=== PATIENT | male | born 1935 | race Caucasian/White ===

== ENCOUNTER 2016-10-31 03:19 | Inpatient (IN) | payer MEDICARE, MEDICAID ==
[~2016-10-31] VITALS: Ht 182.9 cm; Wt 86.2 kg
[2016-10-31] VITALS (38 sets, daily range): BP systolic 68–138; BP diastolic 28–80
[~2016-10-31 03:19] MED LIST: ACTOS45 MG PO; ALBUTEROL2.5 MG/3 M HHN; APRESOLINE50 MG ORAL; ARGINAID POWDE1 EACH PO; ASCORBIC ACID500 MG ORAL; ASPIRIN81 M1 PO; BENAZEPRIL HCL5 MG PO; CARAFATE1 G1 ORAL; CARDIZEM CD300 MG ORAL; CEFEPIME-D1 GM/50 ML IVPB; CEPHALEXIN500 MG ORAL; COLACE100 MG PO; DAILY VITAMIN1 EACH PO; DOCUSATE CALCI240 MG PO; FINASTERIDE5 MG PO; FLAGYL500 MG ORAL; FLOMAX0.4 MG ORAL; FUROSEMIDE40 MG ORAL; KEFLEX500 MG ORAL; LASIX20 M1 ORAL; LEVEMIR FL100 UNIT/1 SUBQ; LEVEMIR100 UNIT/1 SUBQ; LEXAPRO10 MG ORAL; LOMOTIL TABLET1 EACH ORAL; LOPRESSOR25 M1 ORAL; METFORMIN HCL1000 MG PO; METOPROLOL SUC100 MG PO; METOPROLOL TART25 MG ORAL; MULTI-DELYN237 ML ORAL; NORCO 5-325 TA1 EACH PO; NORVASC5 MG ORAL; NOVOLOG100 UNIT/3 SUBQ; NOVOLOG100 UNITS1 SUBQ; PRAVACHOL20 MG GT; PRAVACHOL80 MG PO; PROTONIX20 MG PO; PROTONIX40 M2 ORAL; RAMIPRIL5 MG ORAL; RESTORIL15 MG PO; TAMSULOSIN HCL0.4 MG PO; TOBRADEX EYE DRO5 ML OP; TYLENOL650 MG/20. ORAL; ULTRAM50 MG ORAL; VICODIN 5-5001 EACH PO; VITAMIN C500 MG PO; ZINC SULFATE220 M1 ORAL; [UNRECOGNIZED DRUG - OTHER] PO
[2016-10-31] MEDS ORDERED: FERROUS SULFAT325 MG ORAL (03:24)
[2016-10-31] MEDS ORDERED: GLYCOLAX225 GM PO (03:29)
[2016-10-31] MEDS ORDERED: CYANOCOBAL1000 MCG/M IM (03:29)
[2016-10-31] MEDS ORDERED: AMIODARONE HCL400 M1 ORAL ×2 (03:30→03:32)
[2016-10-31] MEDS ORDERED: LOPRESSOR5 MG/5 ML ORAL (03:33)
[2016-10-31] MEDS ORDERED: PRANDIN2 MG ORAL (03:34)
[2016-10-31] MEDS ORDERED: PRAVASTATIN SOD20 M1 ORAL (03:35)
[2016-10-31] MEDS ORDERED: TAMSULOSIN HCL0.4 MG ORAL (03:35)
[2016-10-31] MEDS ORDERED: PROTONIX40 MG ORAL (03:36)
[2016-10-31] MEDS ORDERED: TRAMADOL HCL50 MG ORAL (03:36)
[2016-10-31] MEDS ORDERED: PROSCAR5 MG ORAL (03:37)
[2016-10-31] MEDS ORDERED: GLUCAGEN1 M1 IJ (03:38)
[2016-10-31] MEDS ORDERED: HYDRALAZINE HCL25 M1 ORAL (03:38)
[2016-10-31] MEDS ORDERED: NORVASC10 MG ORAL (03:40)
[2016-10-31] MEDS ORDERED: NORVASC5 MG ORAL (03:40)
[2016-10-31] MEDS ORDERED: DOCUSATE SODIU250 MG ORAL (03:41)
--- NOTE | 2016-10-31 03:41 | Emergency Room Report ---
History of Present Illness General Chief Complaint: Fever Source: Medical Record, EMS, PMD Present Illness HPI [id number] BIBEMS from SNF for "fever". No additional info from EMS. Patient with dementia, unreliable contributor to HPI. All PMHx from review of SNF paperwork and review of EMR. No family members present for collaborative history. Per paperwork, patient is DNR. Allergies: Coded Allergies: No Known Allergies (Verified , 03/27/08) UNABLE TO ASSESS (Unverified , 02/28/12) PT W/ AMS, FROM [facility] Patient History Past Medical History: see triage record, old chart reviewed, COPD Past Surgical History: unable to obtain Pertinent Family History: unable to obtain Social History: Denies: alcohol use, drug use, smoking Immunizations: UTD Reviewed Nursing Documentation: PMH: Agreed, PSxH: Agreed Nursing Documentation-PMH Hx Hypertension: Yes Hx COPD: Yes Hx Diabetes: Yes Hx Cancer: No Hx Gastrointestinal Problems: Yes Hx Neurological Problems: Yes Review of Systems All Other Systems: limited - demenita Physical Exam Vital Signs Date Time Temp Pulse Resp B/P Pulse Ox O2 Delivery O2 Flow Rate FiO2 10/31/16 03:10 102.2 90 27 113/78 88 Nasal Cannula 4.0 Sp02 EP Interpretation: reviewed, abnormal General Appearance: normal inspection, well appearing, no apparent distress, alert, GCS 15, non-toxic Head: normocephalic, atraumatic Eyes: bilateral eye EOMI, bilateral eye PERRL ENT: normal ENT inspection, hearing grossly normal, normal voice Neck: normal inspection, full range of motion, supple, no bony tend Respiratory: normal inspection, no respiratory distress, no retraction, crackles, speaking full sentences, wheezing Cardiovascular #1: regular rate, rhythm, no edema Gastrointestinal: normal inspection, normal bowel sounds, non tender, soft, no guarding, no hernia Genitourinary: other - Urine is thick, pus filled in existign ingram Musculoskeletal: normal inspection, back normal, normal range of motion, González' s Sign negative Neurologic: normal inspection, alert, responsive, sat act instructor III-XII nml as tested, speech normal Psychiatric: normal inspection, judgement/insight normal, mood/affect normal Skin: normal inspection, normal color, no rash Medical Decision Making Medicare Attestation I Vidal Rose MD hereby attest that the medical record entry for date of service, 04/18/16 accurately reflects signatures/notations that I made in my capacity as MD when I treated/diagnosed the above listed Medicare beneficiary. I attest that this information is true, accurate and complete to the best of my knowledge. I understand that any falsification, omission, or concealment of material fact may subject me to administrative, civil, or criminal liability. This patient warrants hospital admission for extreme of age and has a condition that cannot be treated as outpatient. Diagnostic Impression: Primary Impression: Fever Qualified Codes: R50.9 - Fever, unspecified Additional Impressions: UTI (urinary tract infection) Qualified Codes: N30.01 - Acute cystitis with hematuria COPD (chronic obstructive pulmonary disease) Qualified Codes: J44.9 - Chronic obstructive pulmonary disease, unspecified Hyperkalemia Hypernatremia MARCO (acute kidney injury) ER Course Fever - Normotensive. Not tachycardia - Urine likely source - thick, pus-filled, foul-smelling. Ingram changed in ED. - Lung exam with crackles, wheezing, ?PNA - CXR: No lobar PNA. Possible left sided infiltrate - Urine, Blood Cx pending - 1L NS given - did not want to give full 30cc/kg sepsis fluid bolus given extreme of age, unknown cardiac EF function - Empiric Abx given Wheezing - COPD history - 1 neb given in ED - Patient continued to desaturate, was started on Bipap Labs: Mild HyperNa, HyperK. Serum Cr acutely worse than previous baseline Marco on CKD - Dehydration? Endorsed to Dr Lema for YOLETTE admisstion at 427am - 200cc/hr IVF given in ED Endorsed to Dr Lema for YOLETTE admission at EKG Diagnostic Results Rate: normal Rhythm: NSR ST Segments: no acute changes ASA given to the pt in ED: No Rhythm Strip Diag. Results EP Interpretation: yes Rate: 86 Rhythm: NSR, no PVC's, no ectopy Chest X-Ray Diagnostic Results Chest X-Ray Ordered: Yes # of Views/Limited/Complete: 1 View Interpretation: no consolidation, no effusion, no pneumothorax, no acute cardiopulmonary disease Indication: Other - fever Impression: No acute disease Date Electronically Signed: Oct 31, 2016 Time Electronically Signed: 03:37 Interpreting ER Physician: Quang Last Vital Signs Date Time Temp Pulse Resp B/P Pulse Ox O2 Delivery O2 Flow Rate FiO2 10/31/16 03:10 102.2 90 27 113/78 88 Nasal Cannula 4.0 Status: improved Disposition: ADMITTED INPATIENT VIDAL ROSE M.D. Oct 31, 2016 03:41
[2016-10-31] MEDS ORDERED: Albuterol ud Inhalation HHN ONE (03:45)
[2016-10-31] MEDS ORDERED: Vancomycin 1.5gm/D5W 300ml 325 ML IVPB ONE (03:45)
[2016-10-31] MEDS ORDERED: DUONEB 0.5-3(2.53 ML HHN (03:52)
[2016-10-31] MEDS ORDERED: EPOGEN20000 UNI1 SUBQ (03:53)
[2016-10-31] MEDS ORDERED: VITAMIN C500 M1 ORAL (03:54)
[2016-10-31] MEDS ORDERED: LANTUS SOL100 UNIT/1 SUBQ (03:55)
[2016-10-31] MEDS ORDERED: Zosyn 4.5gm inj ONE (04:01)
[2016-10-31 04:06] LABS: BASOPHILS % (AUTO) 1.6 % (0.0-2.0); LYMPHOCYTES % (AUTO) 6.3 % (20.0-45.0); MEAN CORPUSCULAR HEMOGLOBIN 28.9 PG (27.0-31.0); MEAN CORPUSCULAR HGB CONC 31.9 G/DL (32.0-36.0); MEAN CORPUSCULAR VOLUME 91 FL (80-99); MEAN PLATELET VOLUME 6.7 FL (6.5-10.1); MONOCYTES % (AUTO) 8.8 % (1.0-10.0); NEUTROPHILS % (AUTO) 83.3 % (45.0-75.0); PLATELET COUNT 157 K/UL (150-450); RED BLOOD COUNT 4.15 M/UL (4.70-6.10); RED CELL DISTRIBUTION WIDTH 15.2 % (11.6-14.8); WHITE BLOOD COUNT 16.7 K/UL (4.8-10.8)
[2016-10-31 04:10] LABS: APPEARANCE,URINE CLOUDY; KETONES,URINE NEGATIVE (NEGATIVE); LEUKOCYTE ESTERASE ,URINE 3+ (NEGATIVE); NITRITE,URINE NEGATIVE (NEGATIVE); PH,URINE 8 (4.5-8.0); PROTEIN,URINE 3+ (NEGATIVE); UROBILINOGEN,URINE NORMAL MG/DL (0.0-1.0)
[2016-10-31 04:18] LABS: ALANINE AMINOTRANSFERASE 9 U/L (3-41); ALBUMIN/GLOBULIN RATIO 0.8 (1.0-2.7); ANION GAP 13 (5-15); ASPARTATE AMINO TRANSFERASE 14 U/L (5-40); CALCIUM 9.4 mg/dL (8.6-10.2); CARBON DIOXIDE 30 mEQ/L (20-30); CHLORIDE 103 mEQ/L (98-107); CREATININE 2.6 mg/dL (0.7-1.2); HEMOLYSIS 4; SODIUM 146 mEQ/L (135-145); TOTAL PROTEIN 8.4 g/dL (6.6-8.7)
[2016-10-31 04:20] LABS: TROPONIN I < 0.30 ng/mL (<=0.30)
[2016-10-31 04:28] LABS: CKMB < 1.5 ng/mL (< 6.7)
[2016-10-31 04:34] LABS: AMORPHOUS SEDIMENT,UR MANY /LPF; BACTERIA,URINE MANY /HPF; RBC,URINE 15-20 /HPF (0 - 0); SQUAMOUS EPITHELIAL CELL,UR OCCASIONAL /LPF (NONE/OCC); TRIPLE PHOSPHATE CRYSTAL,UR MODERATE /LPF
[2016-10-31] MEDS ORDERED: Acetaminophen 650 MG SUPP RECTAL ONE (04:43)
[2016-10-31] MEDS ORDERED: Piperacillin/Tazobactam 4.5 GM in NS 110 ML IV SCH (06:00)
[2016-10-31] MEDS ORDERED: Meropenem 1 GM in NS 110 ML IVPB ONE (06:15)
[2016-10-31] MEDS ORDERED: EPINEPHrine 1mg/10ml Syringe IV ONE ×2 (06:29→07:15)
[2016-10-31] MEDS ORDERED: Lidocaine 1% Plain 30 ml INJ ONE (06:45)
[2016-10-31] MEDS ORDERED: D5W 275 ML ONE (07:10)
[2016-10-31] MEDS ORDERED: Levophed 4mg/4mL Inj IV ONE (07:10)
[2016-10-31] MEDS ORDERED: Tubing IV Cassette IV ONE ×2 (07:10→07:51)
[2016-10-31] MEDS ORDERED: NS 110 ML ONE (07:51)
[2016-10-31] MEDS ORDERED: Meropenem 1gm vial ONE (07:51)
[2016-10-31] MEDS: Meropenem 1 GM in NS 110 ML IVPB SCH ×2 (08:30→20:45)
--- NOTE | 2016-10-31 08:37 | Diagnostic Imaging Report ---
Indications: Shortness of breath Technique: Portable AP chest Findings: Comparison: 09/07/2014 Inspiratory effort has improved. There is suggestion of new focal hazy opacities in the left upper lobe and perihilar regions. Linear densities persist in the left lung base. Small calcified nodules persist in or over the right lung apex. Right lung remains clear. Mild blunting of left costophrenic angle suggested; right sharp. Cardiac silhouette remains upper limits of normal in size. Mild pulmonary vascular redistribution persists. Aortic arch calcification again noted. Chronic appearing contour deformity proximal right humerus again noted. IMPRESSION: Suggestion of new alveolar opacities left upper lung, nonspecific, may represent early pneumonia Suggestion of small left pleural effusion Borderline cardiomegaly with suggestion of pulmonary venous hypertension, without overt congestive heart failure, unchanged Other stable chronic changes as described
--- NOTE | 2016-10-31 09:02 | Emergency Room Report ---
History of Present Illness General Chief Complaint: Fever Source: Medical Record, EMS, PMD Present Illness Allergies: Coded Allergies: No Known Allergies (Verified , 03/27/08) UNABLE TO ASSESS (Unverified , 02/28/12) PT W/ AMS, FROM [facility] Nursing Documentation-PMH Hx Hypertension: Yes Hx COPD: Yes Hx Diabetes: Yes Hx Cancer: No Hx Gastrointestinal Problems: Yes Hx Neurological Problems: Yes Physical Exam Vital Signs Date Time Temp Pulse Resp B/P Pulse Ox O2 Delivery O2 Flow Rate FiO2 10/31/16 03:10 102.2 90 27 113/78 88 Nasal Cannula 4.0 10/31/16 03:44 28 Procedures Central Line Central Line : Consent: Emergent Central Line Lumen: triple Maximal Sterile Barrier Tech: yes cap, yes mask, yes sterile gown, yes sterile gloves, yes large sterile sheet, yes hand hygiene, yes chlorhexidine prep Central Line Postion: femoral (L) Anesthesia: Lidocaine Complications: none Central Line Post Position: sutured, good blood return Attempts: One Patient Tolerated: Well Complications: None Medical Decision Making Diagnostic Impression: Primary Impression: Fever Qualified Codes: R50.9 - Fever, unspecified Additional Impressions: COPD (chronic obstructive pulmonary disease) Qualified Codes: J44.9 - Chronic obstructive pulmonary disease, unspecified Hypernatremia UTI (urinary tract infection) Qualified Codes: N30.01 - Acute cystitis with hematuria MARCO (acute kidney injury) Hyperkalemia ER Course While on BiPAP patient became hypotensive. Initially patient was DO NOT RESUSCITATE but admitting physician agreed to pressor support Initial attempt was made by admitting physician for central line but unsuccessful. I placed a left central femoral line without complication. Pressor started Last Vital Signs Date Time Temp Pulse Resp B/P Pulse Ox O2 Delivery O2 Flow Rate FiO2 10/31/16 08:50 61 22 96/43 Bi-pap 100 10/31/16 08:30 97.8 100 4.0 Status: improved Disposition: ADMITTED INPATIENT Condition: Critical Referrals: ROLAND MURILLO (PCP) KEITH OWUSU M.D. Oct 31, 2016 09:02
[2016-10-31 10:29] LABS: ABG ALLEN TEST POSITIVE; ABG BASE EXCESS 0.4; ABG PCO2 49.8 mmHg (35.0-45.0)
[2016-10-31] MEDS ORDERED: DuoNeb 0.5-3(2.5)mg/3ml neb HHN SCH (11:00)
[2016-10-31] MEDS: Insulin NovoLOG Flexpen S/S (Ins resistant) SUBQ SCH ×3 (11:30→20:49)
--- NOTE | 2016-10-31 12:15 | History and Physical Report ---
DATE OF ADMISSION: 10/31/2016 This is an History and Physical and ICU note CHIEF COMPLAINT AND REASON FOR HOSPITALIZATION: The patient is a 80-year-old male, admitted with septic shock, respiratory failure, and multiorgan failure. HISTORY OF PRESENT ILLNESS: The patient is well known to me has a history of COPD, hypertension, insulin-dependent diabetes, chronic kidney disease stage IV or V bed ridden status, cognitive impairment, and sacral decubitus who presents with a fever of 102.0 degrees in the long term and hypotension despite several liters of fluid given in the emergency room. His indwelling Stewart catheter for protection of the skin in view of his sacral decubitus. He has B12 deficiency prior CO2 retention and hypoxemia prior Pseudomonas pneumonia. PAST SURGICAL HISTORY: Cervical spine surgery for spinal stenosis, prostatectomy, eye surgery for cataracts. MEDICATIONS: Medications at the [facility] include ferrous sulfate, calcium, B12, MiraLAX, amiodarone, Cardizem, Lasix, Lopressor, Prandin, pravastatin, Flomax, tramadol, Tylenol, multivitamins and minerals, Robitussin p.r.n., Protonix, Proscar, NovoLog sliding scale, hydralazine, Norvasc, DSS, Lantus 46 units, and supplemental feedings, Epogen, zinc, and vitamins C. Detailed doses on the transfer record. ALLERGIES: None known. HABITS: He is a former smoker most of his adult life quit within the last 5 years. Alcohol, occasional in the past. Moderate many years ago. SYSTEMS REVIEW: The patient's unable as above, major problems as above. PHYSICAL EXAMINATION: GENERAL: The patient is seen in the ICU. He has a non-rebreather mask and recently was stopped on BiPAP. He is alert, responsive and recognizes physician. VITAL SIGNS: Temperature 97.8 degrees, pulse 60, blood pressure 101/57, and 96/43 on Levophed FiO2 100%, pulse ox 100. HEENT: Head eyes, ears, nose, and throat, sclerae are nonicteric. He has exotropia 1 eye. Oral mucosa slightly dry. NECK: No adenopathy. LUNGS: Distant breath sounds. I do not hear any rales or rhonchi. HEART: Rhythm is regular and tachycardic. I hear no murmur. ABDOMEN: Soft. Liver and spleen not palpable. There is mild distention and mild increased gas and tympanitic. GENITOURINARY: Stewart catheter is in place. Penis and testes normal. SKIN: There is a sacral decubitus likely stage III. Photos in the chart. EXTREMITIES: No edema, cyanosis or clubbing. No contractures in the knees and the arms. NEUROLOGIC: He is alert and responsive. Ocular motions are intact, but he does have a exotropia in one eye. There is no facial asymmetry. Moves all extremities. LABORATORY AND DIAGNOSTIC DATA: Pertinent labs, white count 16.7 and hemoglobin is 12. Sodium 146, potassium 5, chloride 103, CO2 of 30, BUN 65, creatinine 2.6, and glucose 132. Troponin less than 0.30. CK 86. Liver enzymes are normal. Albumin 3.9. Lactic acid 1. Urinalysis shows 5-10 white cells per high-powered field, 15-20 red cells per high-power field. Chest x-ray was done in the emergency room showing a suggestion of new alveolar opacities in the left upper lung may represent early pneumonia suggestive of small left pleural effusion, borderline cardiomegaly and suggestion of pulmonary venous hypertension. IMPRESSION: 1. Septic shock most likely due to urinary tract infection with indwelling Stewart catheter. Possible developing pneumonia. Possible other sources including decubitus intra-abdominal. 2. Chronic kidney disease stage 4. 3. Insulin-dependent diabetes. 4. Hypertensive heart disease. 5. Likely underlying ischemic heart disease. 6. History of gastritis and peptic ulcer disease. 7. History of urinary retention. 8. Decubitus. 9. Contractures secondary to osteoarthritis and prior cervical spinal stenosis. PLAN: The patient will be hydrated. We will try to wean him off pressors given broad-spectrum antibiotics and watch him closely in the ICU. Try to wean him off of the pressors. Detailed ICU orders are given. ICU time 40 minutes. Jose Lema M.D. DR: Jahaira JOB#: [id number] CC:
[2016-10-31] MEDS ORDERED: Ipratropium 0.02% Inh Soln 2.5ml UD HHN SCH (13:00)
[2016-10-31] MEDS ORDERED: Vancomycin 1.5 GM/D5W 325 ML IVPB SCH ×2 (13:00)
[2016-10-31] MEDS ORDERED: Albuterol ud Inhalation HHN SCH (13:00)
[2016-10-31] MEDS ORDERED: Vancomycin 750 MG in D5W 275 ML IVPB SCH (13:00)
[2016-10-31] MEDS: DuoNeb 0.5-3(2.5)mg/3ml neb HHN SCH ×2 (13:48→19:03)
[2016-10-31] MEDS: Famotidine 20 MG/ 2ML VIAL IVP SCH (14:30)
--- NOTE | 2016-10-31 16:45 | Consultation ---
DATE OF CONSULTATION: 10/31/2016 PULMONARY CONSULTATION/ICU CONSULTATION HISTORY OF PRESENT ILLNESS: This is a 80-year-old male who is brought in from a fdc with fever. No other history was available. The patient was here and worked up in the emergency room, initially was placed on BiPAP, is now admitted to ICU. He is presently on a face mask with oxygen saturation of 97%. The patient is also on low-dose pressors. PAST HISTORY: Notable for dementia, COPD, hypertension, diabetes mellitus, history not obtainable, previous history is not known. PHYSICAL EXAMINATION: GENERAL: Reveals an elderly male. VITAL SIGNS: Blood pressure at this time is 90/60 on norepinephrine, heart rate is 68, respirations are 20, O2 saturation 97% on face mask, and T-max 102.2 degrees. HEENT: Unremarkable. RESPIRATORY: Clear. ABDOMEN: Soft. EXTREMITIES: There is no edema. LABORATORY AND DIAGNOSTIC DATA: Urinalysis showed multiple WBCs. X-ray of chest shows patchy left upper lung infiltrate. IMPRESSION: 1. Septic shock. 2. Urinary tract infection. 3. History of chronic obstructive pulmonary disease. 4. Probable pneumonia, healthcare associated. 5. Lung chronic obstructive pulmonary disease. 6. Dementia. DISCUSSION: The patient is admitted to the hospital. Despite lactic acid being 1, I believe he had septic shock with multi-organ dysfunction, renal failure, respiratory failure, and sepsis. We will initiate broad-spectrum antibiotics. Titrate oxygen. Check ABG. 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 Order oxygen, pulmonology and . Rao Sylvester M.D. DR: AMARI JOB#: [id number] CC:
[2016-10-31] MEDS: Heparin 5000 units/ml inj SUBQ SCH (20:47)
[2016-10-31] MEDS ORDERED: Levemir Flexpen SUBQ SCH (21:00)
[2016-11-01] VITALS (19 sets, daily range): BP systolic 88–140; BP diastolic 34–59
[2016-11-01] MEDS: DuoNeb 0.5-3(2.5)mg/3ml neb HHN SCH ×6 (01:12→23:57)
[2016-11-01 04:53] LABS: BASOPHILS % (AUTO) 0.5 % (0.0-2.0); EOSINOPHILS % (AUTO) 0.1 % (0.0-3.0); LYMPHOCYTES % (AUTO) 12.4 % (20.0-45.0); MEAN CORPUSCULAR HEMOGLOBIN 28.3 PG (27.0-31.0); MEAN CORPUSCULAR HGB CONC 30.8 G/DL (32.0-36.0); MEAN CORPUSCULAR VOLUME 92 FL (80-99); MEAN PLATELET VOLUME 6.5 FL (6.5-10.1); MONOCYTES % (AUTO) 10.1 % (1.0-10.0); PLATELET COUNT 107 K/UL (150-450); RED BLOOD COUNT 3.25 M/UL (4.70-6.10); WHITE BLOOD COUNT 12.6 K/UL (4.8-10.8)
[2016-11-01 05:18] LABS: TROPONIN I < 0.30 ng/mL (<=0.30)
[2016-11-01 05:24] LABS: ALANINE AMINOTRANSFERASE 8 U/L (3-41); ALBUMIN/GLOBULIN RATIO 0.7 (1.0-2.7); ANION GAP 18 (5-15); ASPARTATE AMINO TRANSFERASE 15 U/L (5-40); CALCIUM 8.4 mg/dL (8.6-10.2); CARBON DIOXIDE 25 mEQ/L (20-30); CHLORIDE 108 mEQ/L (98-107); CREATININE 2.4 mg/dL (0.7-1.2); HEMOLYSIS 2; MAGNESIUM 2.4 mg/dL (1.7-2.5); PHOSPHORUS 4.6 mg/dL (2.5-4.8); SODIUM 151 mEQ/L (135-145); TOTAL PROTEIN 6.6 g/dL (6.6-8.7)
[2016-11-01] MEDS: Insulin NovoLOG Flexpen S/S (Ins resistant) SUBQ SCH ×3 (05:54→16:33)
--- NOTE | 2016-11-01 07:43 | General Progress Note ---
Assessment/Plan Problem List: (1) Severe sepsis ICD Codes: A41.9 - Sepsis, unspecified organism; R65.20 - Severe sepsis without septic shock SNOMED: 83638890 (2) Sepsis ICD Codes: A41.9 - Sepsis, unspecified organism SNOMED: 77163926 (3) Respiratory failure ICD Codes: J96.90 - Respiratory failure, unsp, unsp w hypoxia or hypercapnia SNOMED: 538171435 (4) Sacral decubitus ulcer, stage III ICD Codes: L89.153 - Sacral decubitus ulcer, stage III SNOMED: 708135994 (5) Debility ICD Codes: R53.81 - Debility SNOMED: 58660507 (6) Type II diabetes mellitus ICD Codes: E11.9 - Type II diabetes mellitus SNOMED: 18726685 (7) COPD (chronic obstructive pulmonary disease) ICD Codes: J44.9 - Chronic obstructive pulmonary disease, unspecified SNOMED: 70184082 Qualifiers: Qualified Codes: J44.9 - Chronic obstructive pulmonary disease, unspecified (8) Coronary disease ICD Codes: I25.10 - Atherosclerotic heart disease of [place] coronary artery without angina pectoris SNOMED: 79576434 (9) Anemia in chronic kidney disease ICD Codes: N18.9 - Chronic kidney disease, unspecified; D63.1 - Anemia in chronic kidney disease SNOMED: 591142467, 530245590 (10) CKD (chronic kidney disease) stage 4, GFR 15-29 ml/min ICD Codes: N18.4 - Chronic kidney disease, stage 4 (severe) SNOMED: 433059720 (11) Pyelonephritis ICD Codes: N12 - Tubulo-interstitial nephritis, not specified as acute or chronic SNOMED: 96612591 (12) Septic shock ICD Codes: A41.9 - Sepsis, unspecified organism; R65.21 - Severe sepsis with septic shock SNOMED: 81335937 Assessment/Plan off pressors, weak, continue hydration and empiric atb, cultures pending Subjective Constitutional: Reports: weakness HEENT: Reports: no symptoms Cardiovascular: Reports: no symptoms Respiratory: Reports: cough, shortness of breath Gastrointestinal/Abdominal: Reports: no symptoms Genitourinary: Reports: incontinence Neurologic/Psychiatric: Reports: pre-existing deficit Endocrine: Reports: no symptoms Hematologic/Lymphatic: Reports: anemia Allergies: Coded Allergies: No Known Allergies (Verified , 03/27/08) UNABLE TO ASSESS (Unverified , 02/28/12) PT W/ AMS, FROM [facility] Objective Last 24 Hour Vital Signs Date Time Temp Pulse Resp B/P Pulse Ox O2 Delivery O2 Flow Rate FiO2 11/01/16 07:15 62 18 100 Venturi Mask 10.0 45 11/01/16 07:12 Venturi Mask 10.0 45 11/01/16 07:05 58 18 96 Venturi Mask 10.0 45 11/01/16 07:04 96 Venturi Mask 10.0 45 11/01/16 07:00 60 23 88/39 96 Venturi Mask 14.0 45 11/01/16 06:00 58 22 98/44 97 Venturi Mask 14.0 45 11/01/16 05:00 55 23 95/37 96 Venturi Mask 14.0 45 11/01/16 04:00 97.8 70 23 110/49 97 Venturi Mask 14.0 45 11/01/16 04:00 70 11/01/16 03:00 57 24 98/39 97 Venturi Mask 14.0 45 11/01/16 02:00 58 23 92/34 95 Venturi Mask 14.0 45 11/01/16 01:21 57 18 99 Venturi Mask 10.0 45 11/01/16 01:20 56 18 98 Venturi Mask 10.0 45 11/01/16 01:00 97.6 56 24 106/41 96 Venturi Mask 14.0 45 11/01/16 00:00 54 11/01/16 00:00 54 27 92/36 97 Venturi Mask 14.0 45 10/31/16 23:00 54 24 99/36 97 Venturi Mask 14.0 45 10/31/16 22:00 56 32 95/40 97 Venturi Mask 14.0 45 10/31/16 21:00 57 27 87/38 97 Venturi Mask 14.0 45 10/31/16 20:00 55 10/31/16 20:00 98.2 61 27 92/36 96 Venturi Mask 14.0 45 10/31/16 19:04 56 18 98 Venturi Mask 10.0 45 10/31/16 19:04 57 18 98 Venturi Mask 10.0 45 10/31/16 19:02 Venturi Mask 14.0 45 10/31/16 19:01 99 Venturi Mask 14.0 45 10/31/16 19:00 57 23 112/47 98 Venturi Mask 14.0 45 10/31/16 18:00 59 24 90/34 96 Venturi Mask 14.0 45 10/31/16 17:00 59 25 102/41 95 Venturi Mask 14.0 45 10/31/16 16:00 97.7 63 21 138/55 99 Venturi Mask 14.0 45 10/31/16 16:00 79 10/31/16 15:56 121/47 10/31/16 15:30 63 20 121/47 98 Venturi Mask 14.0 55 10/31/16 15:00 63 20 123/48 98 Venturi Mask 14.0 55 10/31/16 14:30 61 22 123/48 98 Venturi Mask 14.0 45 10/31/16 14:00 63 20 120/47 98 Venturi Mask 14.0 45 10/31/16 13:30 59 19 121/48 96 Venturi Mask 14.0 45 10/31/16 13:23 60 20 99 Venturi Mask 10.0 45 10/31/16 13:18 60 20 99 Venturi Mask 10.0 45 10/31/16 13:00 60 23 121/47 96 Venturi Mask 14.0 55 10/31/16 12:30 61 22 123/48 96 Venturi Mask 14.0 55 10/31/16 12:00 98.2 59 20 104/38 98 Venturi Mask 14.0 55 10/31/16 11:30 53 22 79/34 96 Venturi Mask 14.0 55 10/31/16 11:00 52 21 79/34 96 Venturi Mask 14.0 55 10/31/16 10:30 56 21 79/34 96 Venturi Mask 14.0 55 10/31/16 10:00 58 20 71/28 96 Venturi Mask 14.0 55 10/31/16 09:45 65 22 88/32 96 Venturi Mask 14.0 55 10/31/16 09:31 100 Venturi Mask 14.0 55 10/31/16 09:31 Venturi Mask 14.0 55 10/31/16 09:30 60 22 86/36 96 Venturi Mask 14.0 55 10/31/16 09:15 69 24 97/35 98 Venturi Mask 14.0 55 10/31/16 09:15 61 22 97/35 Venturi Mask 55 10/31/16 09:00 72 10/31/16 09:00 98.1 71 24 97/35 98 Venturi Mask 14.0 55 10/31/16 09:00 97.3 65 23 107/73 Non-Rebreather 100 65 10/31/16 08:50 61 22 96/43 Bi-pap 100 10/31/16 08:30 97.8 60 22 101/57 100 Bi-pap 4.0 100 10/31/16 08:30 60 22 101/57 Bi-pap 100 10/31/16 08:15 60 20 100/46 Bi-pap 100 10/31/16 08:00 97.8 60 20 101/43 Bi-pap 100 10/31/16 07:50 68 24 101/59 Bi-pap 100 10/31/16 07:40 68 24 93/51 Bi-pap 100 Intake and Output 10/31/16 11/01/16 19:00 07:00 Intake Total 1000 ml 330 ml Output Total 430 ml 610 ml Balance 570 ml -280 ml Intake Oral 0 ml 220 ml IV Total 1000 ml 110 ml Output Urine Total 430 ml 610 ml Laboratory Tests 10/31/16 10:20: Arterial Blood pH 7.340L, Arterial Blood Partial Pressure CO2 49.8H, Arterial Blood Partial Pressure O2 77.3, Arterial Blood HCO3 26.6H, Arterial Blood Oxygen Saturation 94.3, Arterial Blood Base Excess 0.4, Lucho Test Positive 11/01/16 04:00: White Blood Count 12.6H, Red Blood Count 3.25L, Hemoglobin 9.2L, Hematocrit 29.8L, Mean Corpuscular Volume 92, Mean Corpuscular Hemoglobin 28.3, Mean Corpuscular Hemoglobin Concent 30.8L, Red Cell Distribution Width 15.0H, Platelet Count 107L, Mean Platelet Volume 6.5, Neutrophils (%) (Auto) 77.0H, Lymphocytes (%) (Auto) 12.4L, Monocytes (%) (Auto) 10.1H, Eosinophils (%) (Auto ) 0.1, Basophils (%) (Auto) 0.5, Sodium Level 151H, Potassium Level 4.0, Chloride Level 108H, Carbon Dioxide Level 25, Anion Gap 18H, Blood Urea Nitrogen 66H, Creatinine 2.4H, Estimat Glomerular Filtration Rate , Glucose Level 113H, Calcium Level 8.4L, Phosphorus Level 4.6, Magnesium Level 2.4, Total Bilirubin < 0.2, Aspartate Amino Transf (AST/SGOT) 15, Alanine Aminotransferase (ALT/SGPT) 8, Alkaline Phosphatase 60, Troponin I < 0.30, Total Protein 6.6, Albumin 2.9L, Globulin 3.7, Albumin/Globulin Ratio 0.7L Height (Feet): 6 Height (Inches): 0.00 Weight (Pounds): 190 General Appearance: mild distress EENT: other - exotropia Neck: normal alignment Cardiovascular: normal rate, regular rhythm Respiratory/Chest: decreased breath sounds Abdomen: non tender, distended Extremities: other - no eddema contractures Neurologic: motor weakness, disoriented Skin: other - sacral decubitus ROLAND MURILLO Nov 01, 2016 07:43
[2016-11-01] MEDS ORDERED: traMADol 50mg tab ORAL PRN ×2 (07:45→19:45)
[2016-11-01] MEDS ORDERED: Acetaminophen 650mg/20.3ml ORAL PRN (07:45)
[2016-11-01] MEDS: Ascorbic Acid 500mg tab ORAL SCH ×2 (08:06→17:39)
[2016-11-01] MEDS: Famotidine 20 MG/ 2ML VIAL IVP SCH (08:06)
[2016-11-01] MEDS: Amiodarone 200mg tab ORAL SCH ×2 (08:06→21:42)
[2016-11-01] MEDS: Docusate 250mg cap ORAL SCH ×2 (08:07→17:39)
[2016-11-01] MEDS: Heparin 5000 units/ml inj SUBQ SCH ×2 (08:07→21:00)
[2016-11-01] MEDS: Sucralfate 1gm tab ORAL SCH ×4 (08:07→22:09)
[2016-11-01] MEDS: Piperacillin/Tazobactam 3.375 GM in D5W 110 ML IVPB SCH ×2 (08:57→16:31)
[2016-11-01] MEDS ORDERED: Miralax 17gm pkt ORAL SCH (09:00)
[2016-11-01] MEDS ORDERED: Zinc Sulfate 220mg cap ORAL SCH (09:00)
--- NOTE | 2016-11-01 09:47 | Wound Care Consultation ---
Wound Assessment Wound Assessment : Wound Number: #1 Wound Present on Admission: Yes New Wound: No Status Change of Wound: No Wound Location Body Site Modif: mid Wound Location Body Site: sacral Wound Type: pressure ulcer Galen Test: Does not Galen Pressure Ulcer Stage: IV/unstageable Wound Thickness: Full Thickness Wound Length: 3.5 Wound Width: 2.0 Wound Depth: 0.3 Percent of Wound [place]/Red: 50 Percent of Wound Purple/Maroon: 50 Other Colors Identified: 9.0 cmx 8.0cm maroon color noted to surrounding tissue. Wound Drainage Description: Serosanguineous Wound Drainage Amount: Moderate Wound Drainage Odor: None/Absent Tissue Surrounding Wound: Macerated Wound General Appearance: Reddened, Draining Wound Comment #1 Mid Sacral pressure ulcer stage IV. Surrounding tissue noted maroon in color. Recommendation. -Local wound care as ordered. -Apply low air loss mattress p200. -Turn and reposition. -Offload affected area. -Optimize nutrition. -Keep clean and dry. -Avoid shear or friction. -Offload heels/feet. -Assess and notify MD for any further changes of condition to skin noted. LON DANIEL Nov 01, 2016 09:47
--- NOTE | 2016-11-01 10:11 | Pulmonology Progress Note ---
Assessment/Plan Assessment/Plan 1. Septic shock. 2. Urinary tract infection. 3. History of chronic obstructive pulmonary disease. 4. Probable pneumonia, healthcare associated. 5. Lung chronic obstructive pulmonary disease. 6. Dementia. DISCUSSION: Off pressors Doing well on nasal o2 Titrate oxygen. Continue breathing treatments Transfer to [facility] Continue abx Subjective Interval Events: Better; saturating well on nasal o2 Constitutional: Reports: no symptoms HEENT: Repors: no symptoms Respiratory: Reports: no symptoms Cardiovascular: Reports: no symptoms Gastrointestinal/Abdominal: Reports: no symptoms Genitourinary: Reports: no symptoms Neurologic: Reports: no symptoms Allergies: Coded Allergies: No Known Allergies (Verified , 03/27/08) Objective Last 24 Hour Vital Signs Date Time Temp Pulse Resp B/P Pulse Ox O2 Delivery O2 Flow Rate FiO2 11/01/16 09:00 70 28 106/43 97 Nasal Cannula 3.0 11/01/16 08:00 97.6 74 18 114/44 96 Nasal Cannula 3.0 11/01/16 08:00 56 11/01/16 07:15 62 18 100 Venturi Mask 10.0 45 11/01/16 07:12 Venturi Mask 10.0 45 11/01/16 07:05 58 18 96 Venturi Mask 10.0 45 11/01/16 07:04 96 Venturi Mask 10.0 45 11/01/16 07:00 60 23 88/39 96 Venturi Mask 14.0 45 11/01/16 06:00 58 22 98/44 97 Venturi Mask 14.0 45 11/01/16 05:00 55 23 95/37 96 Venturi Mask 14.0 45 11/01/16 04:00 97.8 70 23 110/49 97 Venturi Mask 14.0 45 11/01/16 04:00 70 11/01/16 03:00 57 24 98/39 97 Venturi Mask 14.0 45 11/01/16 02:00 58 23 92/34 95 Venturi Mask 14.0 45 11/01/16 01:21 57 18 99 Venturi Mask 10.0 45 11/01/16 01:20 56 18 98 Venturi Mask 10.0 45 11/01/16 01:00 97.6 56 24 106/41 96 Venturi Mask 14.0 45 11/01/16 00:00 54 11/01/16 00:00 54 27 92/36 97 Venturi Mask 14.0 45 10/31/16 23:00 54 24 99/36 97 Venturi Mask 14.0 45 10/31/16 22:00 56 32 95/40 97 Venturi Mask 14.0 45 10/31/16 21:00 57 27 87/38 97 Venturi Mask 14.0 45 10/31/16 20:00 55 10/31/16 20:00 98.2 61 27 92/36 96 Venturi Mask 14.0 45 10/31/16 19:04 56 18 98 Venturi Mask 10.0 45 10/31/16 19:04 57 18 98 Venturi Mask 10.0 45 10/31/16 19:02 Venturi Mask 14.0 45 10/31/16 19:01 99 Venturi Mask 14.0 45 10/31/16 19:00 57 23 112/47 98 Venturi Mask 14.0 45 10/31/16 18:00 59 24 90/34 96 Venturi Mask 14.0 45 10/31/16 17:00 59 25 102/41 95 Venturi Mask 14.0 45 10/31/16 16:00 97.7 63 21 138/55 99 Venturi Mask 14.0 45 10/31/16 16:00 79 10/31/16 15:56 121/47 10/31/16 15:30 63 20 121/47 98 Venturi Mask 14.0 55 10/31/16 15:00 63 20 123/48 98 Venturi Mask 14.0 55 10/31/16 14:30 61 22 123/48 98 Venturi Mask 14.0 45 10/31/16 14:00 63 20 120/47 98 Venturi Mask 14.0 45 10/31/16 13:30 59 19 121/48 96 Venturi Mask 14.0 45 10/31/16 13:23 60 20 99 Venturi Mask 10.0 45 10/31/16 13:18 60 20 99 Venturi Mask 10.0 45 10/31/16 13:00 60 23 121/47 96 Venturi Mask 14.0 55 10/31/16 12:30 61 22 123/48 96 Venturi Mask 14.0 55 10/31/16 12:00 98.2 59 20 104/38 98 Venturi Mask 14.0 55 10/31/16 11:30 53 22 79/34 96 Venturi Mask 14.0 55 10/31/16 11:00 52 21 79/34 96 Venturi Mask 14.0 55 10/31/16 10:30 56 21 79/34 96 Venturi Mask 14.0 55 Intake and Output 10/31/16 11/01/16 19:00 07:00 Intake Total 1000 ml 330 ml Output Total 430 ml 610 ml Balance 570 ml -280 ml Intake Oral 0 ml 220 ml IV Total 1000 ml 110 ml Output Urine Total 430 ml 610 ml General Appearance: no acute distress HEENT: normocephalic Respiratory/Chest: chest wall non-tender, lungs clear Cardiovascular: normal peripheral pulses, normal rate Abdomen: normal bowel sounds, soft, non tender Extremities: no cyanosis Microbiology Date/Time Source Procedure Growth Status 10/31/16 03:24 Blood Blood Culture - Preliminary NO GROWTH AFTER 24 HOURS Resulted 10/31/16 03:24 Urine,Clean Catch Urine Culture - Preliminary Resulted Laboratory Tests 10/31/16 10:20: Arterial Blood pH 7.340L, Arterial Blood Partial Pressure CO2 49.8H, Arterial Blood Partial Pressure O2 77.3, Arterial Blood HCO3 26.6H, Arterial Blood Oxygen Saturation 94.3, Arterial Blood Base Excess 0.4, Lucho Test Positive 11/01/16 04:00: White Blood Count 12.6H, Red Blood Count 3.25L, Hemoglobin 9.2L, Hematocrit 29.8L, Mean Corpuscular Volume 92, Mean Corpuscular Hemoglobin 28.3, Mean Corpuscular Hemoglobin Concent 30.8L, Red Cell Distribution Width 15.0H, Platelet Count 107L, Mean Platelet Volume 6.5, Neutrophils (%) (Auto) 77.0H, Lymphocytes (%) (Auto) 12.4L, Monocytes (%) (Auto) 10.1H, Eosinophils (%) (Auto ) 0.1, Basophils (%) (Auto) 0.5, Sodium Level 151H, Potassium Level 4.0, Chloride Level 108H, Carbon Dioxide Level 25, Anion Gap 18H, Blood Urea Nitrogen 66H, Creatinine 2.4H, Estimat Glomerular Filtration Rate , Glucose Level 113H, Calcium Level 8.4L, Phosphorus Level 4.6, Magnesium Level 2.4, Total Bilirubin < 0.2, Aspartate Amino Transf (AST/SGOT) 15, Alanine Aminotransferase (ALT/SGPT) 8, Alkaline Phosphatase 60, Troponin I < 0.30, Total Protein 6.6, Albumin 2.9L, Globulin 3.7, Albumin/Globulin Ratio 0.7L Current Medications Medications (Trade) Dose Ordered Sig/Larissa Route PRN Reason Start Time Stop Time Status Last Admin Dose Admin Acetaminophen (Tylenol) 650 mg DAILYPRN PRN ORAL wound care 11/01/16 07:45 12/01/16 07:44 Albuterol/ Ipratropium (DuoNeb 0.5-3(2.5)mg/3ml) 3 ml Q4HRT HHN 11/01/16 11:00 11/06/16 10:59 Amiodarone HCl (Cordarone) 200 mg EVERY 12 HOURS ORAL 11/01/16 09:00 12/01/16 08:59 11/01/16 08:06 Ascorbic Acid (Vitamin C) 500 mg TWICE A DAY ORAL 11/01/16 09:00 12/01/16 08:59 11/01/16 08:06 Dextrose STAT PRN IV Hypoglycemia 10/31/16 06:30 11/30/16 06:29 Docusate Sodium (Colace) 250 mg TWICE A DAY ORAL 11/01/16 09:00 12/01/16 08:59 11/01/16 08:07 Escitalopram Oxalate (Lexapro) 10 mg DAILY ORAL 11/01/16 09:00 12/01/16 08:59 11/01/16 08:37 Famotidine (Pepcid I.v.) 20 mg DAILY IVP 10/31/16 10:00 11/30/16 09:59 11/01/16 08:06 Ferrous Sulfate (Feosol) 325 mg TWICE A DAY ORAL 11/01/16 09:00 12/01/16 08:59 11/01/16 08:06 Heparin Sodium (Porcine) (Heparin 5000 units/ml) 5,000 units EVERY 12 HOURS SUBQ 10/31/16 21:00 11/30/16 20:59 10/31/16 20:47 Insulin Aspart (NovoLOG) No Dose BEFORE MEALS AND HS SUBQ 10/31/16 11:30 11/30/16 11:29 11/01/16 05:54 Insulin Detemir (Levemir) 20 units BEDTIME SUBQ 10/31/16 21:00 11/30/16 20:59 10/31/16 20:48 Multivitamins (Multivitamins) 1 tab DAILY ORAL 11/01/16 09:00 12/01/16 08:59 11/01/16 08:07 Norepinephrine Bitartrate/ Dextrose (Levophed/D5W) 250 ml @ 0 mls/hr Q24H IV 10/31/16 06:30 11/30/16 06:29 10/31/16 15:56 Pantoprazole (Protonix) 40 mg EVERY 12 HOURS ORAL 11/01/16 09:00 12/01/16 08:59 UNV Piperacillin Sod/ Tazobactam Sod/ Dextrose (Zosyn/D5W) 110 ml @ 27.5 mls/hr Q8H IVPB 11/01/16 09:00 11/08/16 08:59 11/01/16 08:57 Polyethylene Glycol (Miralax) 17 gm DAILY ORAL 11/01/16 09:00 12/01/16 08:59 11/01/16 08:57 Pravastatin Sodium (Pravachol) 80 mg BEDTIME ORAL 11/01/16 21:00 12/01/16 20:59 Sucralfate (Carafate) 1 gm FOUR TIMES A DAY ORAL 11/01/16 09:00 12/01/16 08:59 11/01/16 08:07 Tramadol HCl (Ultram) 50 mg Q4H PRN ORAL Moderate Pain (Pain Scale 4-6) 11/01/16 07:45 11/08/16 07:44 Vancomycin HCl 1 ea 1 ea DAILY PRN MISC Per rx protocol 10/31/16 11:15 11/30/16 11:14 Vancomycin HCl/ Dextrose (Vancomycin/D5W) 275 ml @ 183.708 mls/hr Q24H IVPB 11/01/16 13:00 11/06/16 12:59 Zinc Sulfate 220 mg 220 mg DAILY ORAL 11/01/16 09:00 12/01/16 08:59 11/01/16 08:07 Rao Sylvester MD Nov 01, 2016 10:11
[2016-11-01] MEDS ORDERED: Albuterol ud Inhalation HHN SCH (11:00)
--- NOTE | 2016-11-01 12:14 | Diagnostic Imaging Report ---
Indication: COPD shortness of breath Technique: One view of the chest Comparison: 10/31/2016 Findings: Interim development of bilateral perihilar linear opacities consistent with atelectasis. There is increased interstitial and possibly alveolar consolidation in the left mid and lower lung. There is increased blunting of the left costophrenic angle; small effusion not excludable. Impression: Increasing bilateral perihilar atelectasis, left lung pleural and parenchymal disease, over one day, as described
[2016-11-01] MEDS ORDERED: Vancomycin 750 MG in D5W 275 ML IVPB SCH (13:00)
--- NOTE | 2016-11-01 16:37 | Infectious Diseases Prog Note ---
Assessment/Plan Assessment/Plan Full consult dictated: A) 1) sepsis, shock, uti, aspiration pna/hcap pna, leukocytosis fevers 2) pmh noted 3) allergies - negative P) 1) zosyn and vancomycin 2) check cultures, labs and chest x-ray 3) orders entered and noted 4) thank you Subjective Allergies: Coded Allergies: No Known Allergies (Verified , 03/27/08) Objective Vital Signs Last 24 Hour Vital Signs Date Time Temp Pulse Resp B/P Pulse Ox O2 Delivery O2 Flow Rate FiO2 11/01/16 16:00 72 11/01/16 16:00 98.0 70 20 116/52 98 Nasal Cannula 3.0 11/01/16 15:09 64 20 100 Nasal Cannula 3.0 32 11/01/16 15:00 74 20 120/56 98 Nasal Cannula 3.0 11/01/16 14:56 68 18 98 Nasal Cannula 3.0 32 11/01/16 14:00 73 19 131/53 97 Nasal Cannula 3.0 11/01/16 13:00 76 20 121/50 97 Nasal Cannula 3.0 11/01/16 12:00 98.1 62 28 100/37 97 Nasal Cannula 3.0 11/01/16 12:00 60 11/01/16 11:51 60 20 100 Nasal Cannula 3.0 32 11/01/16 11:40 64 20 96 Nasal Cannula 3.0 32 11/01/16 11:00 69 21 117/46 97 Nasal Cannula 3.0 11/01/16 10:00 64 26 123/37 97 Nasal Cannula 3.0 11/01/16 09:00 70 28 106/43 97 Nasal Cannula 3.0 11/01/16 08:00 97.6 74 18 114/44 96 Nasal Cannula 3.0 11/01/16 08:00 56 11/01/16 07:15 62 18 100 Venturi Mask 10.0 45 11/01/16 07:12 Venturi Mask 10.0 45 11/01/16 07:05 58 18 96 Venturi Mask 10.0 45 11/01/16 07:04 96 Venturi Mask 10.0 45 11/01/16 07:00 60 23 88/39 96 Venturi Mask 14.0 45 11/01/16 06:00 58 22 98/44 97 Venturi Mask 14.0 45 11/01/16 05:00 55 23 95/37 96 Venturi Mask 14.0 45 11/01/16 04:00 97.8 70 23 110/49 97 Venturi Mask 14.0 45 11/01/16 04:00 70 11/01/16 03:00 57 24 98/39 97 Venturi Mask 14.0 45 11/01/16 02:00 58 23 92/34 95 Venturi Mask 14.0 45 11/01/16 01:21 57 18 99 Venturi Mask 10.0 45 11/01/16 01:20 56 18 98 Venturi Mask 10.0 45 11/01/16 01:00 97.6 56 24 106/41 96 Venturi Mask 14.0 45 11/01/16 00:00 54 11/01/16 00:00 54 27 92/36 97 Venturi Mask 14.0 45 10/31/16 23:00 54 24 99/36 97 Venturi Mask 14.0 45 10/31/16 22:00 56 32 95/40 97 Venturi Mask 14.0 45 10/31/16 21:00 57 27 87/38 97 Venturi Mask 14.0 45 10/31/16 20:00 55 10/31/16 20:00 98.2 61 27 92/36 96 Venturi Mask 14.0 45 10/31/16 19:04 56 18 98 Venturi Mask 10.0 45 10/31/16 19:04 57 18 98 Venturi Mask 10.0 45 10/31/16 19:02 Venturi Mask 14.0 45 10/31/16 19:01 99 Venturi Mask 14.0 45 10/31/16 19:00 57 23 112/47 98 Venturi Mask 14.0 45 10/31/16 18:00 59 24 90/34 96 Venturi Mask 14.0 45 10/31/16 17:00 59 25 102/41 95 Venturi Mask 14.0 45 Height (Feet): 6 Height (Inches): 0.00 Weight (Pounds): 190 Microbiology Date/Time Source Procedure Growth Status 10/31/16 03:24 Blood Blood Culture - Preliminary NO GROWTH AFTER 24 HOURS Resulted 10/31/16 03:24 Urine,Clean Catch Urine Culture - Preliminary Resulted Laboratory Tests Test 11/01/16 04:00 White Blood Count 12.6 K/UL (4.8-10.8) H Red Blood Count 3.25 M/UL (4.70-6.10) L Hemoglobin 9.2 G/DL (14.2-18.0) L Hematocrit 29.8 % (42.0-52.0) L Mean Corpuscular Volume 92 FL (80-99) Mean Corpuscular Hemoglobin 28.3 PG (27.0-31.0) Mean Corpuscular Hemoglobin Concent 30.8 G/DL (32.0-36.0) L Red Cell Distribution Width 15.0 % (11.6-14.8) H Platelet Count 107 K/UL (150-450) L Mean Platelet Volume 6.5 FL (6.5-10.1) Neutrophils (%) (Auto) 77.0 % (45.0-75.0) H Lymphocytes (%) (Auto) 12.4 % (20.0-45.0) L Monocytes (%) (Auto) 10.1 % (1.0-10.0) H Eosinophils (%) (Auto) 0.1 % (0.0-3.0) Basophils (%) (Auto) 0.5 % (0.0-2.0) Sodium Level 151 mEQ/L (135-145) H Potassium Level 4.0 mEQ/L (3.4-4.9) Chloride Level 108 mEQ/L (98-107) H Carbon Dioxide Level 25 mEQ/L (20-30) Anion Gap 18 (5-15) H Blood Urea Nitrogen 66 mg/dL (7-23) H Creatinine 2.4 mg/dL (0.7-1.2) H Estimat Glomerular Filtration Rate mL/min (>60) Glucose Level 113 mg/dL (74-106) H Calcium Level 8.4 mg/dL (8.6-10.2) L Phosphorus Level 4.6 mg/dL (2.5-4.8) Magnesium Level 2.4 mg/dL (1.7-2.5) Total Bilirubin < 0.2 mg/dL (0.0-1.2) Aspartate Amino Transf (AST/SGOT) 15 U/L (5-40) Alanine Aminotransferase (ALT/SGPT) 8 U/L (3-41) Alkaline Phosphatase 60 U/L (40-129) Troponin I < 0.30 ng/mL (<=0.30) Total Protein 6.6 g/dL (6.6-8.7) Albumin 2.9 g/dL (3.5-5.2) L Globulin 3.7 g/dL Albumin/Globulin Ratio 0.7 (1.0-2.7) L Current Medications Medications (Trade) Dose Ordered Sig/Larissa Route PRN Reason Start Time Stop Time Status Last Admin Dose Admin Acetaminophen (Tylenol) 650 mg DAILYPRN PRN ORAL wound care 11/01/16 07:45 12/01/16 07:44 Albuterol/ Ipratropium (DuoNeb 0.5-3(2.5)mg/3ml) 3 ml Q4HRT HHN 11/01/16 11:00 11/06/16 10:59 11/01/16 14:59 Amiodarone HCl (Cordarone) 200 mg EVERY 12 HOURS ORAL 11/01/16 09:00 12/01/16 08:59 11/01/16 08:06 Ascorbic Acid (Vitamin C) 500 mg TWICE A DAY ORAL 11/01/16 09:00 12/01/16 08:59 11/01/16 08:06 Dextrose STAT PRN IV Hypoglycemia 10/31/16 06:30 11/30/16 06:29 Docusate Sodium (Colace) 250 mg TWICE A DAY ORAL 11/01/16 09:00 12/01/16 08:59 11/01/16 08:07 Escitalopram Oxalate (Lexapro) 10 mg DAILY ORAL 11/01/16 09:00 12/01/16 08:59 11/01/16 08:37 Famotidine (Pepcid I.v.) 20 mg DAILY IVP 10/31/16 10:00 11/30/16 09:59 11/01/16 08:06 Ferrous Sulfate (Feosol) 325 mg TWICE A DAY ORAL 11/01/16 09:00 12/01/16 08:59 11/01/16 08:06 Heparin Sodium (Porcine) (Heparin 5000 units/ml) 5,000 units EVERY 12 HOURS SUBQ 10/31/16 21:00 11/30/16 20:59 10/31/16 20:47 Insulin Aspart (NovoLOG) No Dose BEFORE MEALS AND HS SUBQ 10/31/16 11:30 11/30/16 11:29 11/01/16 11:02 Insulin Detemir (Levemir) 20 units BEDTIME SUBQ 10/31/16 21:00 11/30/16 20:59 10/31/16 20:48 Multivitamins (Multivitamins) 1 tab DAILY ORAL 11/01/16 09:00 12/01/16 08:59 11/01/16 08:07 Norepinephrine Bitartrate/ Dextrose (Levophed/D5W) 250 ml @ 0 mls/hr Q24H IV 10/31/16 06:30 11/30/16 06:29 10/31/16 15:56 Pantoprazole (Protonix) 40 mg EVERY 12 HOURS ORAL 11/01/16 09:00 12/01/16 08:59 UNV Piperacillin Sod/ Tazobactam Sod/ Dextrose (Zosyn/D5W) 110 ml @ 27.5 mls/hr Q8H IVPB 11/01/16 09:00 11/08/16 08:59 11/01/16 08:57 Polyethylene Glycol (Miralax) 17 gm DAILY ORAL 11/01/16 09:00 12/01/16 08:59 11/01/16 08:57 Pravastatin Sodium (Pravachol) 80 mg BEDTIME ORAL 11/01/16 21:00 12/01/16 20:59 Sucralfate (Carafate) 1 gm FOUR TIMES A DAY ORAL 11/01/16 09:00 12/01/16 08:59 11/01/16 12:14 Tramadol HCl (Ultram) 50 mg Q4H PRN ORAL Moderate Pain (Pain Scale 4-6) 11/01/16 07:45 11/08/16 07:44 Vancomycin HCl 1 ea 1 ea DAILY PRN MISC Per rx protocol 10/31/16 11:15 11/30/16 11:14 Vancomycin HCl/ Dextrose (Vancomycin/D5W) 275 ml @ 183.708 mls/hr Q24H IVPB 11/01/16 13:00 11/06/16 12:59 11/01/16 12:49 Zinc Sulfate 220 mg 220 mg DAILY ORAL 11/01/16 09:00 12/01/16 08:59 11/01/16 08:07 BRYNN AGUSTIN Nov 01, 2016 16:37
[2016-11-01] MEDS ORDERED: Amiodarone 200mg tab ORAL SCH (21:00)
[2016-11-01] MEDS: NovoLOG Insulin Flexpen SUBQ SCH (21:48)
[2016-11-01] MEDS: Levemir Flexpen SUBQ SCH (21:50)
[2016-11-02] VITALS (7 sets, daily range): BP systolic 134–159; BP diastolic 57–72
[2016-11-02] MEDS: Piperacillin/Tazobactam 3.375 GM in D5W 110 ML IVPB SCH ×3 (02:21→16:43)
--- NOTE | 2016-11-02 02:45 | Consultation ---
DATE OF CONSULTATION: 11/01/2016 INFECTIOUS DISEASE CONSULTATION ATTENDING PHYSICIAN: Jose Lema M.D. REASON FOR CONSULTATION: Septic shock, UTI, pneumonia, leukocytosis, and fever. CHIEF COMPLAINT: The patient's chief complaint coming in the hospital with septic shock, ICU care, pressors. HISTORY OF PRESENT ILLNESS: This is a 80-year-old male who is a very poor historian, however, he is responsive and talkative. The patient is in the ICU at [facility]. The patient presented with septic shock requiring pressors. The patient currently is off pressors. The patient was started on vancomycin and Zosyn. Workup shows that he has urinary tract infection, possible healthcare-acquired aspiration pneumonia. Infectious consultation was requested for further antibiotic management. The patient will be continued on Zosyn and vancomycin, pending final culture. MAR was noted. Orders were noted. Notes were reviewed. The patient was seen in the ICU and discussed with nursing staff there. PAST MEDICAL HISTORY: The patient has past medical history of cervical spine surgery for spinal stenosis, history of prostatectomy, history of eye surgery for cataract. He has history of COPD and hypertension. He has history of hypertension, history of diabetes, insulin-dependent diabetes, history of chronic kidney disease, history of decubitus and ulcers, history of cognitive impairment, history of anemia, ischemic heart disease, hypertensive heart disease, peptic ulcer disease, and gastritis. History of urinary retention, history of contractures, history of COPD, history of neurological issues, and hyperlipidemia. MEDICATIONS: Upon reviewing the MAR, the patient on the following medications, he is on Pravachol, vancomycin, DuoNeb, vitamin C, Cordarone, Colace, Lexapro, ,multivitamins, Protonix, MiraLAX, Carafate, and zinc sulfate. He is on Zosyn, vancomycin, Tylenol, acetaminophen. He is on tramadol, heparin, insulin, famotidine, and IV fluids. Please see medications in medical order. ALLERGIES: No known drug allergies. SOCIAL HISTORY: At this time, negative for smoking, alcohol, or drug use. FAMILY HISTORY: Noncontributory. Negative for exposure to tuberculosis or cancer. REVIEW OF SYSTEMS: Constitutional: The patient has generalized weakness and fatigue. He is responsive, however, he is off pressors at this time. Again, come in with fevers. At this time, there is no fever or chills. No headache. Head And Neck: No head pain or neck pain. Cardiac: No chest pain. Gastrointestinal: No nausea, vomiting, or diarrhea. Genitourinary: He has a Stewart. Pulmonary: He has mild congestion and shortness of breath. No significant secretions or hemoptysis. Skin: No rash. Extremities: No extremity pain. Neurologic: No seizures. He does have skin breakdown and ecchymosis. He does have a sacral wound. This is covered at this time. Picture was reviewed. PHYSICAL EXAMINATION: VITAL SIGNS: On admission, temperature was 102.2 degrees, pulse rate was 59, was a low pulse rate, his blood pressure was in the 70s and 80s systolically consistent with septic shock, may be required pressors. Currently vital signs are as follows, temperature 98.0 degrees, pulse rate 70, respiratory rate 20, blood pressure 116/52, and saturation 98%. GENERAL: The patent is alert and responsive, no acute distress, only mild congestion. HEAD AND NECK: Oral exam, no thrush. Eye exam, no icterus. Normocephalic. No facial droop. No neck stiffness. Neck is supple. HEART: Regular. No gallop or murmur. No friction rub. LUNGS: Few bilateral rhonchi. Decreased breath sounds. Questionable rales. ABDOMEN: Soft. Positive bowel sounds. Nontender. No organomegaly. EXTREMITIES: surgical wound site looks clean and dry. This is reviewed with nursing staff. SKIN: No rash or dermatitis. His staple wounds reviewed. They do not appear to be infected. MUSCULOSKELETAL: He has positive contracture. No effusions. Legs are without cellulitis. PERIPHERAL VASCULAR: No cyanosis or gangrene. RECTAL: Deferred. GENITOURINARY: He has a Stewart. Urine was cloudy. LINE: Line site is without phlebitis. NEUROLOGIC: Generalized weakness. Responsive. LABORATORY AND DIAGNOSIS DATA: Laboratory data is as follows, creatinine is 2.4, white count is 12.6 , hemoglobin 9.2, white count is high 16.7. creatinine 2.4. Liver enzymes are noted. Urinalysis had 3+ leukocyte esterase, 5-10 white blood cells, many bacteria. Urine culture and sputum culture are pending. Chest x-ray showed the following, it showed increasing bilateral atelectasis and left lung pleural and parenchymal disease. ASSESSMENT AND PLAN: 1. The patient comes in with sepsis shock urinary tract infection with septic shock, but also could be aspiration healthcare-acquired pneumonia with septic shock. The patient has leukocytosis and fevers. The patient also require pressors. He is off pressors at this time. Continue vancomycin and Zosyn, IV antibiotics for polymicrobial coverage including MRSA and gram negatives and anaerobes. Check cultures. 2. ICU care. 3. Acute kidney injury. 4. Anemia. 5. Diabetes. 6. Hypertension. 7. Blood sugar and blood pressure controlled by primary 8. Chronic kidney disease. 9. Chronic obstructive pulmonary disease. 10. Sacral wound wound care protocol. 11. Cognitive impairment. 12. Poor historian. 13. 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 14. Prostatectomy. 15. History of cataract. 16. No allergy. 17. Family history of . 18. Social history negative. 19. . 20. Continue ICU care. 21. Treatment per primary consultants. 22. Skin care protocol. 23. Notes were reviewed. Matthew Turner JOB#: [id number] CC:
[2016-11-02] MEDS: DuoNeb 0.5-3(2.5)mg/3ml neb HHN SCH ×6 (03:00→23:19)
[2016-11-02] MEDS: NovoLOG Insulin Flexpen SUBQ SCH ×4 (06:30→21:00)
[2016-11-02] MEDS ORDERED: Acetaminophen 650mg/20.3ml ORAL PRN (07:45)
[2016-11-02 07:49] LABS: BASOPHILS % (AUTO) 0.5 % (0.0-2.0); EOSINOPHILS % (AUTO) 0.9 % (0.0-3.0); LYMPHOCYTES % (AUTO) 9.5 % (20.0-45.0); MEAN CORPUSCULAR HEMOGLOBIN 28.3 PG (27.0-31.0); MEAN CORPUSCULAR HGB CONC 31.9 G/DL (32.0-36.0); MEAN CORPUSCULAR VOLUME 89 FL (80-99); MEAN PLATELET VOLUME 7.8 FL (6.5-10.1); MONOCYTES % (AUTO) 11.7 % (1.0-10.0); NEUTROPHILS % (AUTO) 77.3 % (45.0-75.0); PLATELET COUNT 132 K/UL (150-450); RED BLOOD COUNT 3.61 M/UL (4.70-6.10); RED CELL DISTRIBUTION WIDTH 15.3 % (11.6-14.8); WHITE BLOOD COUNT 9.6 K/UL (4.8-10.8)
[2016-11-02 08:05] LABS: ALANINE AMINOTRANSFERASE 11 U/L (3-41); ALBUMIN/GLOBULIN RATIO 0.8 (1.0-2.7); ANION GAP 16 (5-15); ASPARTATE AMINO TRANSFERASE 18 U/L (5-40); CALCIUM 8.6 mg/dL (8.6-10.2); CARBON DIOXIDE 25 mEQ/L (20-30); CHLORIDE 106 mEQ/L (98-107); CREATININE 1.9 mg/dL (0.7-1.2); HEMOLYSIS 3; POTASSIUM 3.5 mEQ/L (3.4-4.9); SODIUM 147 mEQ/L (135-145); TOTAL PROTEIN 6.9 g/dL (6.6-8.7)
[2016-11-02] MEDS: Heparin 5000 units/ml inj SUBQ SCH ×2 (08:14→22:00)
[2016-11-02] MEDS: Docusate 250mg cap ORAL SCH ×2 (09:18→17:11)
[2016-11-02] MEDS: Ascorbic Acid 500mg tab ORAL SCH ×2 (09:18→17:11)
[2016-11-02] MEDS: Amiodarone 200mg tab ORAL SCH ×2 (09:18→23:43)
[2016-11-02] MEDS: Sucralfate 1gm tab ORAL SCH ×4 (09:18→23:44)
[2016-11-02] MEDS: Miralax 17gm pkt ORAL SCH (09:18)
[2016-11-02] MEDS: Zinc Sulfate 220mg cap ORAL SCH (09:19)
[2016-11-02] MEDS: Vancomycin 750 MG in D5W 275 ML IVPB SCH (13:48)
[2016-11-02] MEDS ORDERED: Tubing IV Secondary IV ONE (16:18)
[2016-11-02] MEDS ORDERED: NS 275ml ONE (16:18)
--- NOTE | 2016-11-02 17:10 | Pulmonology Progress Note ---
Assessment/Plan Assessment/Plan 1. Septic shock. 2. Urinary tract infection. 3. Chronic obstructive pulmonary disease. 4. Pneumonia, healthcare associated. 5. Dementia Weak but feeling better not SOB CXR worse WBC down cont abx Subjective Constitutional: Reports: fatigue, Denies: fever Respiratory: Reports: productive cough Allergies: Coded Allergies: No Known Allergies (Verified , 03/27/08) Objective Last 24 Hour Vital Signs Date Time Temp Pulse Resp B/P Pulse Ox O2 Delivery O2 Flow Rate FiO2 11/02/16 16:00 96.8 70 18 135/68 95 Nasal Cannula 11/02/16 15:51 70 18 Nasal Cannula 2.0 28 11/02/16 15:40 69 18 Nasal Cannula 2.0 28 11/02/16 12:00 63 11/02/16 11:40 97.9 93 18 134/63 93 Nasal Cannula 2.0 11/02/16 11:00 68 18 95 Nasal Cannula 2.0 28 11/02/16 10:52 66 18 94 Nasal Cannula 2.0 28 11/02/16 08:09 97.7 73 18 135/60 92 Nasal Cannula 2.0 11/02/16 08:00 68 11/02/16 07:04 77 18 98 Nasal Cannula 2.0 28 11/02/16 07:01 Nasal Cannula 2.0 28 11/02/16 07:01 98 Nasal Cannula 2.0 28 11/02/16 07:01 68 18 98 Nasal Cannula 2.0 28 11/02/16 04:00 98.1 76 18 141/69 93 Nasal Cannula 2.0 11/02/16 03:54 70 11/02/16 03:37 Nasal Cannula 11/02/16 03:36 Nasal Cannula 11/02/16 00:00 97.7 80 20 159/57 93 Nasal Cannula 2.0 11/01/16 23:45 72 20 96 Nasal Cannula 2.0 28 11/01/16 23:43 74 11/01/16 23:30 70 16 95 Nasal Cannula 2.0 28 11/01/16 20:00 98.2 80 18 140/59 92 Nasal Cannula 2.0 11/01/16 19:44 78 20 98 Nasal Cannula 2.0 28 11/01/16 19:37 76 11/01/16 19:30 97 Nasal Cannula 2.0 28 11/01/16 19:30 Nasal Cannula 2.0 28 11/01/16 19:30 74 16 97 Nasal Cannula 2.0 28 Intake and Output 11/01/16 11/02/16 19:00 07:00 Intake Total 660.000 ml 110.0 ml Output Total 670 ml 800 ml Balance -10.000 ml -690.0 ml Intake Oral 220 ml IV Total 440.000 ml 110.0 ml Output Urine Total 670 ml 800 ml # Bowel Movements 4 1 Objective weak General Appearance: no acute distress Respiratory/Chest: rhonchi Cardiovascular: normal rate Microbiology Date/Time Source Procedure Growth Status 10/31/16 03:24 Blood Blood Culture - Preliminary NO GROWTH AFTER 48 HOURS Resulted 10/31/16 03:10 Blood Blood Culture - Preliminary NO GROWTH AFTER 24 HOURS Resulted 10/31/16 03:24 Urine,Clean Catch Urine Culture - Preliminary Gram Negative Bacillus 1 Gram Negative Bacillus 2 Resulted 11/01/16 13:00 Sacral Wound Gram Stain - Final Resulted 11/01/16 13:00 Sacral Wound Wound Culture - Preliminary Resulted Laboratory Tests 11/02/16 06:40: White Blood Count 9.6, Red Blood Count 3.61L, Hemoglobin 10.2L, Hematocrit 32.0L , Mean Corpuscular Volume 89, Mean Corpuscular Hemoglobin 28.3, Mean Corpuscular Hemoglobin Concent 31.9L, Red Cell Distribution Width 15.3H, Platelet Count 132L, Mean Platelet Volume 7.8, Neutrophils (%) (Auto) 77.3H, Lymphocytes (%) (Auto) 9.5L, Monocytes (%) (Auto) 11.7H, Eosinophils (%) (Auto) 0.9, Basophils (%) (Auto) 0.5, Sodium Level 147H, Potassium Level 3.5, Chloride Level 106, Carbon Dioxide Level 25, Anion Gap 16H, Blood Urea Nitrogen 52H, Creatinine 1.9H, Estimat Glomerular Filtration Rate , Glucose Level 117H, Calcium Level 8.6, Total Bilirubin 0.2, Aspartate Amino Transf (AST/SGOT) 18, Alanine Aminotransferase (ALT/SGPT) 11, Alkaline Phosphatase 58, Total Protein 6.9, Albumin 3.1L, Globulin 3.8, Albumin/Globulin Ratio 0.8L Current Medications Medications (Trade) Dose Ordered Sig/Larissa Route PRN Reason Start Time Stop Time Status Last Admin Dose Admin Acetaminophen (Tylenol) 650 mg DAILYPRN PRN ORAL wound care 6/21/17 07:45 12/02/16 07:44 Albuterol/ Ipratropium (DuoNeb 0.5-3(2.5)mg/3ml) 3 ml Q4HRT HHN 11/01/16 19:00 11/06/16 18:59 11/02/16 15:44 Amiodarone HCl 200 mg 200 mg EVERY 12 HOURS ORAL 11/01/16 09:00 12/01/16 08:59 11/02/16 09:18 Ascorbic Acid (Vitamin C) 500 mg TWICE A DAY ORAL 11/02/16 09:00 12/02/16 08:59 11/02/16 09:18 Dextrose (Dextrose 50%) STAT PRN IV Hypoglycemia 11/02/16 06:30 12/02/16 06:29 11/02/16 06:12 Docusate Sodium (Colace) 250 mg TWICE A DAY ORAL 11/02/16 09:00 12/02/16 08:59 11/02/16 09:18 Escitalopram Oxalate (Lexapro) 10 mg DAILY ORAL 11/02/16 09:00 12/02/16 08:59 11/02/16 09:19 Ferrous Sulfate (Feosol) 325 mg TWICE A DAY ORAL 11/02/16 09:00 12/02/16 08:59 11/02/16 09:18 Heparin Sodium (Porcine) (Heparin 5000 units/ml) 5,000 units EVERY 12 HOURS SUBQ 11/01/16 21:00 12/01/16 20:59 Insulin Aspart (NovoLOG) No Dose BEFORE MEALS AND HS SUBQ 11/01/16 21:00 12/01/16 20:59 11/02/16 16:42 Insulin Detemir (Levemir) 20 units BEDTIME SUBQ 11/01/16 21:00 12/01/16 20:59 11/01/16 21:50 Multivitamins (Multivitamins) 1 tab DAILY ORAL 11/02/16 09:00 12/02/16 08:59 11/02/16 09:18 Pantoprazole (Protonix) 40 mg EVERY 12 HOURS ORAL 11/01/16 21:00 12/01/16 20:59 11/02/16 09:18 Piperacillin Sod/ Tazobactam Sod 3.375 gm/Dextrose 110 ml @ 27.5 mls/hr Q8H IVPB 11/02/16 01:00 11/09/16 00:59 11/02/16 16:43 Polyethylene Glycol (Miralax) 17 gm DAILY ORAL 11/02/16 09:00 12/02/16 08:59 11/02/16 09:18 Pravastatin Sodium (Pravachol) 80 mg BEDTIME ORAL 11/01/16 21:00 12/01/16 20:59 11/01/16 21:42 Sucralfate (Carafate) 1 gm FOUR TIMES A DAY ORAL 11/01/16 21:00 12/01/16 20:59 11/02/16 13:47 Tramadol HCl (Ultram) 50 mg Q4H PRN ORAL Moderate Pain (Pain Scale 4-6) 11/01/16 19:45 11/08/16 19:44 Vancomycin HCl (Vanco rx to dose) 1 ea DAILY PRN MISC Per rx protocol 11/02/16 09:00 12/02/16 08:59 Vancomycin HCl/ Dextrose (Vancomycin/D5W) 275 ml @ 183.708 mls/hr Q24H IVPB 11/02/16 13:00 11/07/16 12:59 11/02/16 13:48 Zinc Sulfate (Zinc Sulfate) 220 mg DAILY ORAL 11/02/16 09:00 12/02/16 08:59 11/02/16 09:19 PRAVIN JULES Nov 02, 2016 17:10
--- NOTE | 2016-11-02 17:23 | General Progress Note ---
Assessment/Plan Problem List: (1) Severe sepsis ICD Codes: A41.9 - Sepsis, unspecified organism; R65.20 - Severe sepsis without septic shock SNOMED: 99056913 (2) Sepsis ICD Codes: A41.9 - Sepsis, unspecified organism SNOMED: 84421104 (3) Respiratory failure ICD Codes: J96.90 - Respiratory failure, unsp, unsp w hypoxia or hypercapnia SNOMED: 078473828 (4) Sacral decubitus ulcer, stage III ICD Codes: L89.153 - Sacral decubitus ulcer, stage III SNOMED: 183960029 (5) Debility ICD Codes: R53.81 - Debility SNOMED: 81061297 (6) Type II diabetes mellitus ICD Codes: E11.9 - Type II diabetes mellitus SNOMED: 03521240 Qualifiers: (7) COPD (chronic obstructive pulmonary disease) ICD Codes: J44.9 - Chronic obstructive pulmonary disease, unspecified SNOMED: 52496230 Qualifiers: Qualified Codes: J44.9 - Chronic obstructive pulmonary disease, unspecified (8) Coronary disease ICD Codes: I25.10 - Atherosclerotic heart disease of [place] coronary artery without angina pectoris SNOMED: 11372640 (9) Anemia in chronic kidney disease ICD Codes: N18.9 - Chronic kidney disease, unspecified; D63.1 - Anemia in chronic kidney disease SNOMED: 705815673, 827761788 (10) CKD (chronic kidney disease) stage 4, GFR 15-29 ml/min ICD Codes: N18.4 - Chronic kidney disease, stage 4 (severe) SNOMED: 485678633 (11) Pyelonephritis ICD Codes: N12 - Tubulo-interstitial nephritis, not specified as acute or chronic SNOMED: 37446756 (12) Septic shock ICD Codes: A41.9 - Sepsis, unspecified organism; R65.21 - Severe sepsis with septic shock SNOMED: 36767759 Assessment/Plan off pressors, weak, continue hydration and empiric atb, cultures pending Subjective Constitutional: Reports: weakness HEENT: Reports: no symptoms Cardiovascular: Reports: no symptoms Respiratory: Reports: cough Gastrointestinal/Abdominal: Reports: no symptoms Genitourinary: Reports: incontinence Neurologic/Psychiatric: Reports: pre-existing deficit Endocrine: Reports: no symptoms Hematologic/Lymphatic: Reports: anemia Allergies: Coded Allergies: No Known Allergies (Verified , 03/27/08) Objective Last 24 Hour Vital Signs Date Time Temp Pulse Resp B/P Pulse Ox O2 Delivery O2 Flow Rate FiO2 11/02/16 16:00 96.8 70 18 135/68 95 Nasal Cannula 11/02/16 15:51 70 18 Nasal Cannula 2.0 28 11/02/16 15:40 69 18 Nasal Cannula 2.0 28 11/02/16 12:00 63 11/02/16 11:40 97.9 93 18 134/63 93 Nasal Cannula 2.0 11/02/16 11:00 68 18 95 Nasal Cannula 2.0 28 11/02/16 10:52 66 18 94 Nasal Cannula 2.0 28 11/02/16 08:09 97.7 73 18 135/60 92 Nasal Cannula 2.0 11/02/16 08:00 68 11/02/16 07:04 77 18 98 Nasal Cannula 2.0 28 11/02/16 07:01 Nasal Cannula 2.0 28 11/02/16 07:01 98 Nasal Cannula 2.0 28 11/02/16 07:01 68 18 98 Nasal Cannula 2.0 28 11/02/16 04:00 98.1 76 18 141/69 93 Nasal Cannula 2.0 11/02/16 03:54 70 11/02/16 03:37 Nasal Cannula 11/02/16 03:36 Nasal Cannula 11/02/16 00:00 97.7 80 20 159/57 93 Nasal Cannula 2.0 11/01/16 23:45 72 20 96 Nasal Cannula 2.0 28 11/01/16 23:43 74 11/01/16 23:30 70 16 95 Nasal Cannula 2.0 28 11/01/16 20:00 98.2 80 18 140/59 92 Nasal Cannula 2.0 11/01/16 19:44 78 20 98 Nasal Cannula 2.0 11/01/16 19:37 76 11/01/16 19:30 97 Nasal Cannula 2.0 11/01/16 19:30 Nasal Cannula 2.0 28 11/01/16 19:30 74 16 97 Nasal Cannula 2.0 28 Intake and Output 11/01/16 11/02/16 19:00 07:00 Intake Total 660.000 ml 110.0 ml Output Total 670 ml 800 ml Balance -10.000 ml -690.0 ml Intake Oral 220 ml IV Total 440.000 ml 110.0 ml Output Urine Total 670 ml 800 ml # Bowel Movements 4 1 Laboratory Tests 11/02/16 06:40: White Blood Count 9.6, Red Blood Count 3.61L, Hemoglobin 10.2L, Hematocrit 32.0L , Mean Corpuscular Volume 89, Mean Corpuscular Hemoglobin 28.3, Mean Corpuscular Hemoglobin Concent 31.9L, Red Cell Distribution Width 15.3H, Platelet Count 132L, Mean Platelet Volume 7.8, Neutrophils (%) (Auto) 77.3H, Lymphocytes (%) (Auto) 9.5L, Monocytes (%) (Auto) 11.7H, Eosinophils (%) (Auto) 0.9, Basophils (%) (Auto) 0.5, Sodium Level 147H, Potassium Level 3.5, Chloride Level 106, Carbon Dioxide Level 25, Anion Gap 16H, Blood Urea Nitrogen 52H, Creatinine 1.9H, Estimat Glomerular Filtration Rate , Glucose Level 117H, Calcium Level 8.6, Total Bilirubin 0.2, Aspartate Amino Transf (AST/SGOT) 18, Alanine Aminotransferase (ALT/SGPT) 11, Alkaline Phosphatase 58, Total Protein 6.9, Albumin 3.1L, Globulin 3.8, Albumin/Globulin Ratio 0.8L Height (Feet): 6 Height (Inches): 0.00 Weight (Pounds): 190 General Appearance: no apparent distress, alert EENT: normal ENT inspection Neck: normal alignment Cardiovascular: normal rate, regular rhythm Respiratory/Chest: rhonchi - bilaterally Abdomen: non tender, soft, no organomegaly Extremities: other - contractures Edema: no edema noted Arm (L), no edema noted Arm (R), no edema noted Leg (L), no edema noted Leg (R), no edema noted Pedal (L), no edema noted Pedal (R), no edema noted Generalized Skin: other - sacral decubiti ROLAND MURILLO Nov 02, 2016 17:23
[2016-11-02] MEDS: Levemir Flexpen SUBQ SCH (21:00)
--- NOTE | 2016-11-02 21:00 | Infectious Diseases Prog Note ---
Assessment/Plan Assessment/Plan ASSESSMENT AND PLAN: 1. sepsis, shock, gram neg uti, possible aspiration pna/hcap vs atx - clinically improved, off pressors - continue zosyn and vancomycin - check final cultures, labs and f/u chest x-ray - orders noted and entered - pulmonary treatment 2. transferred to telemetry 3. Acute kidney injury. 4. Anemia. 5. Diabetes. 6. Hypertension. 7. Blood sugar and blood pressure controlled by primary 8. Chronic kidney disease. 9. Chronic obstructive pulmonary disease. 10. Sacral wound care per wound care protocol. 11. Cognitive impairment. 12. Poor historian. 13. 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 14. Prostatectomy. 15. History of cataract. 16. No allergy - nkda 17. Family history - non-contributory 18. Social history negative. 19. mar noted 20. Continue ICU care. 21. Treatment per primary and consultants. 22. d/w RN 23. Notes were reviewed. Subjective Constitutional: Reports: fatigue, Denies: fever HEENT: Denies: congestion Respiratory: Denies: shortness of breath Cardiovascular: Denies: chest pain Gastrointestinal/Abdominal: Denies: diarrhea, nausea, vomiting Genitourinary: Reports: other - + ingram Neurologic: Denies: headache Psychiatric: Denies: depression Skin: Denies: rash Hematologic: Denies: bleeding Musculoskeletal: Denies: pain Allergies: Coded Allergies: No Known Allergies (Verified , 03/27/08) Objective Vital Signs Last 24 Hour Vital Signs Date Time Temp Pulse Resp B/P Pulse Ox O2 Delivery O2 Flow Rate FiO2 11/02/16 20:01 98.2 67 20 146/72 94 Nasal Cannula 2.0 11/02/16 19:56 68 18 98 Nasal Cannula 2.0 28 11/02/16 19:55 Nasal Cannula 2.0 28 11/02/16 19:55 67 18 95 Nasal Cannula 2.0 28 11/02/16 19:55 95 Nasal Cannula 2.0 28 11/02/16 16:00 96.8 70 18 135/68 95 Nasal Cannula 11/02/16 16:00 67 11/02/16 15:51 70 18 Nasal Cannula 2.0 28 11/02/16 15:40 69 18 Nasal Cannula 2.0 28 11/02/16 12:00 63 11/02/16 11:40 97.9 93 18 134/63 93 Nasal Cannula 2.0 11/02/16 11:00 68 18 95 Nasal Cannula 2.0 28 11/02/16 10:52 66 18 94 Nasal Cannula 2.0 28 11/02/16 08:09 97.7 73 18 135/60 92 Nasal Cannula 2.0 11/02/16 08:00 68 11/02/16 07:04 77 18 98 Nasal Cannula 2.0 28 11/02/16 07:01 Nasal Cannula 2.0 28 11/02/16 07:01 98 Nasal Cannula 2.0 28 11/02/16 07:01 68 18 98 Nasal Cannula 2.0 28 11/02/16 04:00 98.1 76 18 141/69 93 Nasal Cannula 2.0 11/02/16 03:54 70 11/02/16 03:37 Nasal Cannula 11/02/16 03:36 Nasal Cannula 11/02/16 00:00 97.7 80 20 159/57 93 Nasal Cannula 2.0 11/01/16 23:45 72 20 96 Nasal Cannula 2.0 28 11/01/16 23:43 74 11/01/16 23:30 70 16 95 Nasal Cannula 2.0 28 Height (Feet): 6 Height (Inches): 0.00 Weight (Pounds): 190 General Appearance: no acute distress HEENT: normocephalic, atraumatic, anicteric, mucous membranes moist, PERRL, EOMI, pharynx normal, supple, no JVD Respiratory/Chest: lungs clear, normal breath sounds, no respiratory distress, no accessory muscle use Cardiovascular: normal rate, regular rhythm, no gallop/murmur, no JVD Abdomen: normal bowel sounds, soft, non tender, no organomegaly, non distended Genitourinary: other - + ingram - urine slt cloudy Extremities: no cyanosis Skin: no rash Neurologic/Psychiatric: pattern changer and repairer II-XII grossly normal, alert, oriented x 3, responsive Lymphatic: no neck adenopathy Musculoskeletal: no effusion Objective Labs Test 10/31/16 03:24 10/31/16 10:20 11/01/16 04:00 11/02/16 06:40 White Blood Count 16.7 K/UL (4.8-10.8) 12.6 K/UL (4.8-10.8) 9.6 K/UL (4.8-10.8) Red Blood Count 4.15 M/UL (4.70-6.10) 3.25 M/UL (4.70-6.10) 3.61 M/UL (4.70-6.10) Hemoglobin 12.0 G/DL (14.2-18.0) 9.2 G/DL (14.2-18.0) 10.2 G/DL (14.2-18.0) Hematocrit 37.6 % (42.0-52.0) 29.8 % (42.0-52.0) 32.0 % (42.0-52.0) Mean Corpuscular Volume 91 FL (80-99) 92 FL (80-99) 89 FL (80-99) Mean Corpuscular Hemoglobin 28.9 PG (27.0-31.0) 28.3 PG (27.0-31.0) 28.3 PG (27.0-31.0) Mean Corpuscular Hemoglobin Concent 31.9 G/DL (32.0-36.0) 30.8 G/DL (32.0-36.0) 31.9 G/DL (32.0-36.0) Red Cell Distribution Width 15.2 % (11.6-14.8) 15.0 % (11.6-14.8) 15.3 % (11.6-14.8) Platelet Count 157 K/UL (150-450) 107 K/UL (150-450) 132 K/UL (150-450) Mean Platelet Volume 6.7 FL (6.5-10.1) 6.5 FL (6.5-10.1) 7.8 FL (6.5-10.1) Neutrophils (%) (Auto) 83.3 % (45.0-75.0) 77.0 % (45.0-75.0) 77.3 % (45.0-75.0) Lymphocytes (%) (Auto) 6.3 % (20.0-45.0) 12.4 % (20.0-45.0) 9.5 % (20.0-45.0) Monocytes (%) (Auto) 8.8 % (1.0-10.0) 10.1 % (1.0-10.0) 11.7 % (1.0-10.0) Eosinophils (%) (Auto) 0.0 % (0.0-3.0) 0.1 % (0.0-3.0) 0.9 % (0.0-3.0) Basophils (%) (Auto) 1.6 % (0.0-2.0) 0.5 % (0.0-2.0) 0.5 % (0.0-2.0) Urine Color Pale yellow Urine Appearance Cloudy Urine pH 8 (4.5-8.0) Urine Specific [place] 1.015 (1.005-1.035) Urine Protein 3+ (NEGATIVE) Urine Glucose (UA) Negative (NEGATIVE) Urine Ketones Negative (NEGATIVE) Urine Occult Blood 4+ (NEGATIVE) Urine Nitrite Negative (NEGATIVE) Urine Bilirubin Negative (NEGATIVE) Urine Urobilinogen Normal MG/DL (0.0-1.0) Urine Leukocyte Esterase 3+ (NEGATIVE) Urine RBC 15-20 /HPF (0 - 0) Urine WBC 5-10 /HPF (0 - 0) Urine Squamous Epithelial Cells Occasional /LPF Urine Triple Phosphate Crystals Moderate /LPF (NONE) Urine Amorphous Sediment Many /LPF (NONE) Urine Bacteria Many /HPF (NONE) Sodium Level 146 mEQ/L (135-145) 151 mEQ/L (135-145) 147 mEQ/L (135-145) Potassium Level 5.0 mEQ/L (3.4-4.9) 4.0 mEQ/L (3.4-4.9) 3.5 mEQ/L (3.4-4.9) Chloride Level 103 mEQ/L (98-107) 108 mEQ/L (98-107) 106 mEQ/L (98-107) Carbon Dioxide Level 30 mEQ/L (20-30) 25 mEQ/L (20-30) 25 mEQ/L (20-30) Anion Gap 13 (5-15) 18 (5-15) 16 (5-15) Blood Urea Nitrogen 65 mg/dL (7-23) 66 mg/dL (7-23) 52 mg/dL (7-23) Creatinine 2.6 mg/dL (0.7-1.2) 2.4 mg/dL (0.7-1.2) 1.9 mg/dL (0.7-1.2) Estimat Glomerular Filtration Rate mL/min (>60) mL/min (>60) mL/min (>60) Glucose Level 132 mg/dL (74-106) 113 mg/dL (74-106) 117 mg/dL (74-106) Lactic Acid Level 1.00 mmol/L (0.66-2.22) Calcium Level 9.4 mg/dL (8.6-10.2) 8.4 mg/dL (8.6-10.2) 8.6 mg/dL (8.6-10.2) Total Bilirubin 0.4 mg/dL (0.0-1.2) < 0.2 mg/dL (0.0-1.2) 0.2 mg/dL (0.0-1.2) Aspartate Amino Transf (AST/SGOT) 14 U/L (5-40) 15 U/L (5-40) 18 U/L (5-40) Alanine Aminotransferase (ALT/SGPT) 9 U/L (3-41) 8 U/L (3-41) 11 U/L (3-41) Alkaline Phosphatase 75 U/L (40-129) 60 U/L (40-129) 58 U/L (40-129) Total Creatine Kinase 86 U/L (38-174) Creatine Kinase MB < 1.5 ng/mL (< 6.7) Troponin I < 0.30 ng/mL (<=0.30) < 0.30 ng/mL (<=0.30) Total Protein 8.4 g/dL (6.6-8.7) 6.6 g/dL (6.6-8.7) 6.9 g/dL (6.6-8.7) Albumin 3.9 g/dL (3.5-5.2) 2.9 g/dL (3.5-5.2) 3.1 g/dL (3.5-5.2) Globulin 4.5 g/dL 3.7 g/dL 3.8 g/dL Albumin/Globulin Ratio 0.8 (1.0-2.7) 0.7 (1.0-2.7) 0.8 (1.0-2.7) Arterial Blood pH 7.340 (7.350-7.450) Arterial Blood Partial Pressure CO2 49.8 mmHg (35.0-45.0) Arterial Blood Partial Pressure O2 77.3 mmHg (75.0-100.0) Arterial Blood HCO3 26.6 mmol/L (22.0-26.0) Arterial Blood Oxygen Saturation 94.3 % (92.0-98.0) Arterial Blood Base Excess 0.4 Lucho Test Positive Phosphorus Level 4.6 mg/dL (2.5-4.8) Magnesium Level 2.4 mg/dL (1.7-2.5) 11/01 - chest x-ray: Comparison: 10/31/2016 Findings: Interim development of bilateral perihilar linear opacities consistent with atelectasis. There is increased interstitial and possibly alveolar consolidation in the left mid and lower lung. There is increased blunting of the left costophrenic angle; small effusion not excludable. Impression: Increasing bilateral perihilar atelectasis, left lung pleural and parenchymal disease, over one day, as described Microbiology Date/Time Source Procedure Growth Status 10/31/16 03:24 Blood Blood Culture - Preliminary NO GROWTH AFTER 48 HOURS Resulted 10/31/16 03:10 Blood Blood Culture - Preliminary NO GROWTH AFTER 24 HOURS Resulted 10/31/16 03:24 Urine,Clean Catch Urine Culture - Preliminary Gram Negative Bacillus 1 Gram Negative Bacillus 2 Resulted 11/01/16 13:00 Sacral Wound Gram Stain - Final Resulted 11/01/16 13:00 Sacral Wound Wound Culture - Preliminary Resulted Laboratory Tests Test 11/02/16 06:40 White Blood Count 9.6 K/UL (4.8-10.8) Red Blood Count 3.61 M/UL (4.70-6.10) L Hemoglobin 10.2 G/DL (14.2-18.0) L Hematocrit 32.0 % (42.0-52.0) L Mean Corpuscular Volume 89 FL (80-99) Mean Corpuscular Hemoglobin 28.3 PG (27.0-31.0) Mean Corpuscular Hemoglobin Concent 31.9 G/DL (32.0-36.0) L Red Cell Distribution Width 15.3 % (11.6-14.8) H Platelet Count 132 K/UL (150-450) L Mean Platelet Volume 7.8 FL (6.5-10.1) Neutrophils (%) (Auto) 77.3 % (45.0-75.0) H Lymphocytes (%) (Auto) 9.5 % (20.0-45.0) L Monocytes (%) (Auto) 11.7 % (1.0-10.0) H Eosinophils (%) (Auto) 0.9 % (0.0-3.0) Basophils (%) (Auto) 0.5 % (0.0-2.0) Sodium Level 147 mEQ/L (135-145) H Potassium Level 3.5 mEQ/L (3.4-4.9) Chloride Level 106 mEQ/L (98-107) Carbon Dioxide Level 25 mEQ/L (20-30) Anion Gap 16 (5-15) H Blood Urea Nitrogen 52 mg/dL (7-23) H Creatinine 1.9 mg/dL (0.7-1.2) H Estimat Glomerular Filtration Rate mL/min (>60) Glucose Level 117 mg/dL (74-106) H Calcium Level 8.6 mg/dL (8.6-10.2) Total Bilirubin 0.2 mg/dL (0.0-1.2) Aspartate Amino Transf (AST/SGOT) 18 U/L (5-40) Alanine Aminotransferase (ALT/SGPT) 11 U/L (3-41) Alkaline Phosphatase 58 U/L (40-129) Total Protein 6.9 g/dL (6.6-8.7) Albumin 3.1 g/dL (3.5-5.2) L Globulin 3.8 g/dL Albumin/Globulin Ratio 0.8 (1.0-2.7) L Current Medications Medications (Trade) Dose Ordered Sig/Larissa Route PRN Reason Start Time Stop Time Status Last Admin Dose Admin Acetaminophen (Tylenol) 650 mg DAILYPRN PRN ORAL wound care 11/02/16 07:45 12/02/16 07:44 Albuterol/ Ipratropium (DuoNeb 0.5-3(2.5)mg/3ml) 3 ml Q4HRT HHN 11/01/16 19:00 11/06/16 18:59 11/02/16 19:54 Amiodarone HCl 200 mg 200 mg EVERY 12 HOURS ORAL 11/01/16 09:00 12/01/16 08:59 11/02/16 09:18 Ascorbic Acid (Vitamin C) 500 mg TWICE A DAY ORAL 11/02/16 09:00 12/02/16 08:59 11/02/16 17:11 Dextrose (Dextrose 50%) STAT PRN IV Hypoglycemia 11/02/16 06:30 12/02/16 06:29 11/02/16 06:12 Docusate Sodium (Colace) 250 mg TWICE A DAY ORAL 11/02/16 09:00 12/02/16 08:59 11/02/16 17:11 Escitalopram Oxalate (Lexapro) 10 mg DAILY ORAL 11/02/16 09:00 12/02/16 08:59 11/02/16 09:19 Ferrous Sulfate (Feosol) 325 mg TWICE A DAY ORAL 11/02/16 09:00 12/02/16 08:59 11/02/16 17:10 Heparin Sodium (Porcine) (Heparin 5000 units/ml) 5,000 units EVERY 12 HOURS SUBQ 11/01/16 21:00 12/01/16 20:59 Insulin Aspart (NovoLOG) No Dose BEFORE MEALS AND HS SUBQ 11/01/16 21:00 12/01/16 20:59 11/02/16 16:42 Insulin Detemir (Levemir) 20 units BEDTIME SUBQ 11/01/16 21:00 12/01/16 20:59 11/01/16 21:50 Multivitamins (Multivitamins) 1 tab DAILY ORAL 11/02/16 09:00 12/02/16 08:59 11/02/16 09:18 Pantoprazole (Protonix) 40 mg EVERY 12 HOURS ORAL 11/01/16 21:00 12/01/16 20:59 11/02/16 09:18 Piperacillin Sod/ Tazobactam Sod 3.375 gm/Dextrose 110 ml @ 27.5 mls/hr Q8H IVPB 11/02/16 01:00 11/09/16 00:59 11/02/16 16:43 Polyethylene Glycol (Miralax) 17 gm DAILY ORAL 11/02/16 09:00 12/02/16 08:59 11/02/16 09:18 Pravastatin Sodium (Pravachol) 80 mg BEDTIME ORAL 11/01/16 21:00 12/01/16 20:59 11/01/16 21:42 Sucralfate (Carafate) 1 gm FOUR TIMES A DAY ORAL 11/01/16 21:00 12/01/16 20:59 11/02/16 17:10 Tramadol HCl (Ultram) 50 mg Q4H PRN ORAL Moderate Pain (Pain Scale 4-6) 11/01/16 19:45 11/08/16 19:44 Vancomycin HCl (Vanco rx to dose) 1 ea DAILY PRN MISC Per rx protocol 11/02/16 09:00 12/02/16 08:59 Vancomycin HCl/ Dextrose (Vancomycin/D5W) 275 ml @ 183.708 mls/hr Q24H IVPB 11/02/16 13:00 11/07/16 12:59 11/02/16 13:48 Zinc Sulfate (Zinc Sulfate) 220 mg DAILY ORAL 11/02/16 09:00 12/02/16 08:59 11/02/16 09:19 BRYNN AGUSTIN Nov 02, 2016 21:00
[2016-11-03] MEDS: Piperacillin/Tazobactam 3.375 GM in D5W 110 ML IVPB SCH ×3 (01:44→17:00)
[2016-11-03] MEDS: DuoNeb 0.5-3(2.5)mg/3ml neb HHN SCH ×5 (03:23→23:00)
[2016-11-03 04:05] VITALS: BP 134/71
[2016-11-03] MEDS: NovoLOG Insulin Flexpen SUBQ SCH ×4 (06:30→21:19)
[2016-11-03 07:36] LABS: BASOPHILS % (AUTO) 0.6 % (0.0-2.0); EOSINOPHILS % (AUTO) 0.9 % (0.0-3.0); LYMPHOCYTES % (AUTO) 10.8 % (20.0-45.0); MEAN CORPUSCULAR HGB CONC 32.5 G/DL (32.0-36.0); MEAN CORPUSCULAR VOLUME 92 FL (80-99); MONOCYTES % (AUTO) 10.2 % (1.0-10.0); NEUTROPHILS % (AUTO) 77.5 % (45.0-75.0); PLATELET COUNT 125 K/UL (150-450); RED BLOOD COUNT 3.26 M/UL (4.70-6.10); RED CELL DISTRIBUTION WIDTH 15.1 % (11.6-14.8); WHITE BLOOD COUNT 10.2 K/UL (4.8-10.8)
[2016-11-03 07:44] LABS: ANION GAP 18 (5-15); CALCIUM 8.5 mg/dL (8.6-10.2); CARBON DIOXIDE 23 mEQ/L (20-30); CHLORIDE 102 mEQ/L (98-107); CREATININE 1.6 mg/dL (0.7-1.2); HEMOLYSIS 11; POTASSIUM 3.5 mEQ/L (3.4-4.9); SODIUM 143 mEQ/L (135-145)
[2016-11-03 08:00] VITALS: BP 135/58
--- NOTE | 2016-11-03 08:29 | Diagnostic Imaging Report ---
Indications: Shortness of breath Technique: Portable AP chest Findings: Comparison: 11/01/2016 Cardiac silhouette remains upper limits of normal in size. Pulmonary vascular redistribution, bilateral interstitial infiltrates, bilateral linear densities, mild blunting of left costophrenic angle persists, unchanged. No new abnormality identified. IMPRESSION: Stable bilateral congestive changes Stable bilateral subsegmental atelectasis with or without scarring
[2016-11-03] MEDS: Sucralfate 1gm tab ORAL SCH ×4 (10:41→21:15)
[2016-11-03] MEDS: Amiodarone 200mg tab ORAL SCH ×2 (10:41→21:16)
[2016-11-03] MEDS: Docusate 250mg cap ORAL SCH ×2 (10:41→18:00)
[2016-11-03] MEDS: Miralax 17gm pkt ORAL SCH (10:42)
[2016-11-03] MEDS: Zinc Sulfate 220mg cap ORAL SCH (10:43)
[2016-11-03] MEDS: Ascorbic Acid 500mg tab ORAL SCH ×2 (10:43→18:00)
[2016-11-03] MEDS: Heparin 5000 units/ml inj SUBQ SCH ×2 (11:02→21:00)
[2016-11-03 12:00] VITALS: BP 145/69
--- NOTE | 2016-11-03 14:29 | General Progress Note ---
Assessment/Plan Problem List: (1) Severe sepsis ICD Codes: A41.9 - Sepsis, unspecified organism; R65.20 - Severe sepsis without septic shock SNOMED: 02966453 (2) Sepsis ICD Codes: A41.9 - Sepsis, unspecified organism SNOMED: 81872595 (3) Respiratory failure ICD Codes: J96.90 - Respiratory failure, unsp, unsp w hypoxia or hypercapnia SNOMED: 462445557 (4) Sacral decubitus ulcer, stage III ICD Codes: L89.153 - Sacral decubitus ulcer, stage III SNOMED: 391461119 (5) Debility ICD Codes: R53.81 - Debility SNOMED: 91729990 (6) Type II diabetes mellitus ICD Codes: E11.9 - Type II diabetes mellitus SNOMED: 41841859 Qualifiers: (7) COPD (chronic obstructive pulmonary disease) ICD Codes: J44.9 - Chronic obstructive pulmonary disease, unspecified SNOMED: 18289720 Qualifiers: Qualified Codes: J44.9 - Chronic obstructive pulmonary disease, unspecified (8) Coronary disease ICD Codes: I25.10 - Atherosclerotic heart disease of [place] coronary artery without angina pectoris SNOMED: 16438078 (9) Anemia in chronic kidney disease ICD Codes: N18.9 - Chronic kidney disease, unspecified; D63.1 - Anemia in chronic kidney disease SNOMED: 884206934, 536463564 (10) CKD (chronic kidney disease) stage 4, GFR 15-29 ml/min ICD Codes: N18.4 - Chronic kidney disease, stage 4 (severe) SNOMED: 733736034 (11) Pyelonephritis ICD Codes: N12 - Tubulo-interstitial nephritis, not specified as acute or chronic SNOMED: 89773392 (12) Septic shock ICD Codes: A41.9 - Sepsis, unspecified organism; R65.21 - Severe sepsis with septic shock SNOMED: 37256030 (13) MRSA (methicillin resistant staph aureus) culture positive ICD Codes: Z22.322 - Carrier or suspected carrier of Methicillin resistant Staphylococcus aureus SNOMED: 520959850, 624263437 (14) Pseudomonas infection ICD Codes: B96.5 - Pseudomonas (aeruginosa) (mallei) (pseudomallei) as the cause of diseases classified elsewhere SNOMED: 24344360 (15) Infection due to ESBL-producing Escherichia coli ICD Codes: A49.8 - Other bacterial infections of unspecified site; Z16.12 - Extended spectrum beta lactamase (ESBL) resistance SNOMED: 046619168 (16) Healthcare-associated pneumonia ICD Codes: J18.9 - Pneumonia, unspecified organism SNOMED: 141720430 Assessment/Plan off pressors, weak, continue hydration and empiric atb, cultures reviewed Subjective Constitutional: Reports: weakness HEENT: Reports: no symptoms Cardiovascular: Reports: no symptoms Respiratory: Reports: cough, wheezing Gastrointestinal/Abdominal: Reports: no symptoms Genitourinary: Reports: incontinence Neurologic/Psychiatric: Reports: pre-existing deficit Endocrine: Reports: no symptoms Hematologic/Lymphatic: Reports: anemia Allergies: Coded Allergies: No Known Allergies (Verified , 03/27/08) Objective Last 24 Hour Vital Signs Date Time Temp Pulse Resp B/P Pulse Ox O2 Delivery O2 Flow Rate FiO2 11/03/16 12:00 61 11/03/16 12:00 96.3 70 19 145/69 Nasal Cannula 2.0 96 11/03/16 08:00 97.0 66 18 135/58 Nasal Cannula 2.0 95 11/03/16 04:05 98.2 63 20 134/71 96 Nasal Cannula 2.0 11/03/16 04:00 66 11/03/16 03:25 61 18 100 Nasal Cannula 2.0 28 11/03/16 03:24 57 18 96 Nasal Cannula 2.0 28 11/03/16 00:00 67 11/02/16 23:51 98.8 68 20 136/66 96 Nasal Cannula 2.0 11/02/16 23:21 94 18 98 Nasal Cannula 2.0 28 11/02/16 23:20 65 18 96 Nasal Cannula 2.0 28 11/02/16 20:01 98.2 67 20 146/72 94 Nasal Cannula 2.0 11/02/16 20:00 67 11/02/16 19:56 68 18 98 Nasal Cannula 2.0 28 11/02/16 19:55 Nasal Cannula 2.0 28 11/02/16 19:55 67 18 95 Nasal Cannula 2.0 28 11/02/16 19:55 95 Nasal Cannula 2.0 28 11/02/16 16:00 96.8 70 18 135/68 95 Nasal Cannula 11/02/16 16:00 67 6/21/17 15:51 70 18 Nasal Cannula 2.0 28 11/02/16 15:40 69 18 Nasal Cannula 2.0 28 Intake and Output 11/02/16 11/03/16 19:00 07:00 Intake Total 1132.416 ml Output Total 800 ml 800 ml Balance 332.416 ml -800 ml Intake Oral 600 ml IV Total 532.416 ml Output Urine Total 800 ml 800 ml # Bowel Movements 1 1 Laboratory Tests 11/03/16 05:30: White Blood Count 10.2, Red Blood Count 3.26L, Hemoglobin 9.8L, Hematocrit 30.1L , Mean Corpuscular Volume 92, Mean Corpuscular Hemoglobin 30.0, Mean Corpuscular Hemoglobin Concent 32.5, Red Cell Distribution Width 15.1H, Platelet Count 125L, Mean Platelet Volume 8.0, Neutrophils (%) (Auto) 77.5H, Lymphocytes (%) (Auto) 10.8L, Monocytes (%) (Auto) 10.2H, Eosinophils (%) (Auto ) 0.9, Basophils (%) (Auto) 0.6, Sodium Level 143, Potassium Level 3.5, Chloride Level 102, Carbon Dioxide Level 23, Anion Gap 18H, Blood Urea Nitrogen 39H, Creatinine 1.6H, Estimat Glomerular Filtration Rate , Glucose Level 99, Calcium Level 8.5L 11/03/16 11:50: Vancomycin Level Trough 16.3H Height (Feet): 6 Height (Inches): 0.00 Weight (Pounds): 190 General Appearance: no apparent distress, alert, confused EENT: normal ENT inspection Neck: normal alignment Cardiovascular: regular rhythm Respiratory/Chest: decreased breath sounds, rhonchi - bilaterally Abdomen: distended Extremities: other - contractures, no edema Edema: no edema noted Arm (L), no edema noted Arm (R), no edema noted Leg (L), no edema noted Leg (R), no edema noted Pedal (L), no edema noted Pedal (R), no edema noted Generalized Neurologic: motor weakness, disoriented Skin: other - sacral decubitus ROLAND MURILLO Nov 03, 2016 14:29
[2016-11-03] MEDS: Vancomycin 750 MG in D5W 275 ML IVPB SCH (15:03)
[2016-11-03 16:00] VITALS: BP 132/64
--- NOTE | 2016-11-03 17:39 | Pulmonology Progress Note ---
Assessment/Plan Assessment/Plan 1. Septic shock. 2. Urinary tract infection. 3. Chronic obstructive pulmonary disease. 4. Pneumonia, healthcare associated. 5. Dementia Weak but alert; asking for his dentures CXR cont abx Subjective Constitutional: Reports: fatigue, Denies: fever Respiratory: Denies: shortness of breath Cardiovascular: Denies: chest pain Allergies: Coded Allergies: No Known Allergies (Verified , 03/27/08) Objective Last 24 Hour Vital Signs Date Time Temp Pulse Resp B/P Pulse Ox O2 Delivery O2 Flow Rate FiO2 11/03/16 16:00 97.7 71 18 132/64 Nasal Cannula 2.0 95 11/03/16 15:35 60 18 100 Nasal Cannula 2.0 11/03/16 15:26 67 18 96 Nasal Cannula 2.0 11/03/16 12:23 63 18 100 Nasal Cannula 2.0 11/03/16 12:13 61 18 96 Nasal Cannula 2.0 11/03/16 12:00 61 11/03/16 12:00 96.3 70 19 145/69 Nasal Cannula 2.0 96 11/03/16 08:00 97.0 66 18 135/58 Nasal Cannula 2.0 95 11/03/16 06:46 Nasal Cannula 2.0 11/03/16 06:46 Nasal Cannula 2.0 11/03/16 06:40 96 Nasal Cannula 2.0 11/03/16 06:40 Nasal Cannula 2.0 11/03/16 04:05 98.2 63 20 134/71 96 Nasal Cannula 2.0 11/03/16 04:00 66 11/03/16 03:25 61 18 100 Nasal Cannula 2.0 28 11/03/16 03:24 57 18 96 Nasal Cannula 2.0 28 11/03/16 00:00 67 11/02/16 23:51 98.8 68 20 136/66 96 Nasal Cannula 2.0 11/02/16 23:21 94 18 98 Nasal Cannula 2.0 28 11/02/16 23:20 65 18 96 Nasal Cannula 2.0 28 11/02/16 20:01 98.2 67 20 146/72 94 Nasal Cannula 2.0 11/02/16 20:00 67 11/02/16 19:56 68 18 98 Nasal Cannula 2.0 28 11/02/16 19:55 Nasal Cannula 2.0 28 11/02/16 19:55 67 18 95 Nasal Cannula 2.0 28 11/02/16 19:55 95 Nasal Cannula 2.0 28 Intake and Output 11/02/16 11/03/16 19:00 07:00 Intake Total 1132.416 ml Output Total 800 ml 800 ml Balance 332.416 ml -800 ml Intake Oral 600 ml IV Total 532.416 ml Output Urine Total 800 ml 800 ml # Bowel Movements 1 1 Objective weak General Appearance: no acute distress Respiratory/Chest: lungs clear Cardiovascular: normal rate Microbiology Date/Time Source Procedure Growth Status 11/01/16 13:00 Sacral Wound Gram Stain - Final Resulted 11/01/16 13:00 Wound Culture - Preliminary Gram Negative Bacillus 1 Usual Skin Liz Resulted Laboratory Tests 11/03/16 05:30: White Blood Count 10.2, Red Blood Count 3.26L, Hemoglobin 9.8L, Hematocrit 30.1L , Mean Corpuscular Volume 92, Mean Corpuscular Hemoglobin 30.0, Mean Corpuscular Hemoglobin Concent 32.5, Red Cell Distribution Width 15.1H, Platelet Count 125L, Mean Platelet Volume 8.0, Neutrophils (%) (Auto) 77.5H, Lymphocytes (%) (Auto) 10.8L, Monocytes (%) (Auto) 10.2H, Eosinophils (%) (Auto ) 0.9, Basophils (%) (Auto) 0.6, Sodium Level 143, Potassium Level 3.5, Chloride Level 102, Carbon Dioxide Level 23, Anion Gap 18H, Blood Urea Nitrogen 39H, Creatinine 1.6H, Estimat Glomerular Filtration Rate , Glucose Level 99, Calcium Level 8.5L 11/03/16 11:50: Vancomycin Level Trough 16.3H Current Medications Medications (Trade) Dose Ordered Sig/Larissa Route PRN Reason Start Time Stop Time Status Last Admin Dose Admin Acetaminophen (Tylenol) 650 mg DAILYPRN PRN ORAL wound care 11/02/16 07:45 12/02/16 07:44 Albuterol/ Ipratropium (DuoNeb 0.5-3(2.5)mg/3ml) 3 ml Q4HRT HHN 11/01/16 19:00 11/06/16 18:59 11/03/16 12:13 Amiodarone HCl 200 mg 200 mg EVERY 12 HOURS ORAL 11/01/16 09:00 12/01/16 08:59 11/03/16 10:41 Ascorbic Acid (Vitamin C) 500 mg TWICE A DAY ORAL 11/02/16 09:00 12/02/16 08:59 11/03/16 10:43 Dextrose (Dextrose 50%) STAT PRN IV Hypoglycemia 11/02/16 06:30 12/02/16 06:29 11/02/16 06:12 Docusate Sodium (Colace) 250 mg TWICE A DAY ORAL 11/02/16 09:00 12/02/16 08:59 11/03/16 10:41 Escitalopram Oxalate (Lexapro) 10 mg DAILY ORAL 11/02/16 09:00 12/02/16 08:59 11/03/16 10:42 Ferrous Sulfate (Feosol) 325 mg TWICE A DAY ORAL 11/02/16 09:00 12/02/16 08:59 11/03/16 10:42 Heparin Sodium (Porcine) (Heparin 5000 units/ml) 5,000 units EVERY 12 HOURS SUBQ 11/01/16 21:00 12/01/16 20:59 11/03/16 11:02 Insulin Aspart (NovoLOG) No Dose BEFORE MEALS AND HS SUBQ 11/01/16 21:00 12/01/16 20:59 11/03/16 11:30 Insulin Detemir (Levemir) 20 units BEDTIME SUBQ 11/01/16 21:00 12/01/16 20:59 11/01/16 21:50 Multivitamins (Multivitamins) 1 tab DAILY ORAL 11/02/16 09:00 12/02/16 08:59 11/03/16 10:42 Pantoprazole (Protonix) 40 mg EVERY 12 HOURS ORAL 11/01/16 21:00 12/01/16 20:59 11/03/16 10:43 Piperacillin Sod/ Tazobactam Sod 3.375 gm/Dextrose 110 ml @ 27.5 mls/hr Q8H IVPB 11/02/16 01:00 11/09/16 00:59 11/03/16 09:00 Polyethylene Glycol (Miralax) 17 gm DAILY ORAL 11/02/16 09:00 12/02/16 08:59 11/03/16 10:42 Pravastatin Sodium (Pravachol) 80 mg BEDTIME ORAL 11/01/16 21:00 12/01/16 20:59 11/02/16 23:48 Sucralfate (Carafate) 1 gm FOUR TIMES A DAY ORAL 11/01/16 21:00 12/01/16 20:59 11/03/16 14:30 Tramadol HCl (Ultram) 50 mg Q4H PRN ORAL Moderate Pain (Pain Scale 4-6) 11/01/16 19:45 11/08/16 19:44 Vancomycin HCl (Vanco rx to dose) 1 ea DAILY PRN MISC Per rx protocol 11/02/16 09:00 12/02/16 08:59 Vancomycin HCl/ Dextrose (Vancomycin/D5W) 275 ml @ 183.708 mls/hr Q24H IVPB 11/02/16 13:00 11/07/16 12:59 11/03/16 15:03 Zinc Sulfate (Zinc Sulfate) 220 mg DAILY ORAL 11/02/16 09:00 12/02/16 08:59 11/03/16 10:43 PRAVIN JULES Nov 03, 2016 17:39
[2016-11-03 20:15] VITALS: BP 152/78
[2016-11-03] MEDS: Levemir Flexpen SUBQ SCH (21:18)
[2016-11-03 23:56] VITALS: BP 138/70
[2016-11-04] MEDS: Piperacillin/Tazobactam 3.375 GM in D5W 110 ML IVPB SCH ×2 (00:56→08:58)
[2016-11-04] MEDS: DuoNeb 0.5-3(2.5)mg/3ml neb HHN SCH ×5 (02:57→23:20)
[2016-11-04 03:50] VITALS: BP 132/66
[2016-11-04] MEDS: NovoLOG Insulin Flexpen SUBQ SCH ×4 (06:30→21:51)
[2016-11-04 07:27] LABS: BASOPHILS % (AUTO) 0.8 % (0.0-2.0); EOSINOPHILS % (AUTO) 1.1 % (0.0-3.0); LYMPHOCYTES % (AUTO) 9.6 % (20.0-45.0); MEAN CORPUSCULAR HEMOGLOBIN 29.1 PG (27.0-31.0); MEAN CORPUSCULAR HGB CONC 31.4 G/DL (32.0-36.0); MEAN CORPUSCULAR VOLUME 93 FL (80-99); MEAN PLATELET VOLUME 6.6 FL (6.5-10.1); MONOCYTES % (AUTO) 10.3 % (1.0-10.0); NEUTROPHILS % (AUTO) 78.2 % (45.0-75.0); PLATELET COUNT 135 K/UL (150-450); RED CELL DISTRIBUTION WIDTH 15.2 % (11.6-14.8); WHITE BLOOD COUNT 8.6 K/UL (4.8-10.8)
[2016-11-04 07:53] LABS: ANION GAP 15 (5-15); CALCIUM 8.6 mg/dL (8.6-10.2); CARBON DIOXIDE 26 mEQ/L (20-30); CHLORIDE 104 mEQ/L (98-107); CREATININE 1.7 mg/dL (0.7-1.2); HEMOLYSIS 5; POTASSIUM 3.2 mEQ/L (3.4-4.9); SODIUM 145 mEQ/L (135-145)
[2016-11-04 08:00] VITALS: BP 135/72
[2016-11-04] MEDS: Miralax 17gm pkt ORAL SCH (08:58)
[2016-11-04] MEDS: Ascorbic Acid 500mg tab ORAL SCH ×2 (08:58→17:19)
[2016-11-04] MEDS: Sucralfate 1gm tab ORAL SCH ×4 (08:59→21:46)
[2016-11-04] MEDS: Zinc Sulfate 220mg cap ORAL SCH (08:59)
[2016-11-04] MEDS: Amiodarone 200mg tab ORAL SCH ×2 (08:59→21:45)
[2016-11-04] MEDS: Docusate 250mg cap ORAL SCH ×2 (08:59→17:18)
[2016-11-04] MEDS: Heparin 5000 units/ml inj SUBQ SCH ×2 (09:00→21:50)
[2016-11-04 12:00] VITALS: BP 132/70
--- NOTE | 2016-11-04 12:25 | Pulmonology Progress Note ---
Assessment/Plan Assessment/Plan 1. Septic shock. 2. Urinary tract infection. 3. Chronic obstructive pulmonary disease. 4. Pneumonia, healthcare associated. 5. Dementia Weak but alert cont abx CXR stable bilateral congestive changes, atelectasis pulm stable Subjective Constitutional: Reports: fatigue Respiratory: Denies: productive cough, shortness of breath Allergies: Coded Allergies: No Known Allergies (Verified , 03/27/08) Objective Last 24 Hour Vital Signs Date Time Temp Pulse Resp B/P Pulse Ox O2 Delivery O2 Flow Rate FiO2 11/04/16 11:18 Nasal Cannula 2.0 11/04/16 11:18 Nasal Cannula 2.0 11/04/16 08:00 70 11/04/16 08:00 97.2 72 16 135/72 98 Nasal Cannula 2.0 11/04/16 07:59 70 18 99 Nasal Cannula 2.0 11/04/16 07:42 97 Nasal Cannula 2.0 11/04/16 07:42 Nasal Cannula 2.0 11/04/16 07:42 73 16 97 Nasal Cannula 2.0 11/04/16 04:00 63 11/04/16 03:50 97.8 68 19 132/66 98 Nasal Cannula 2.0 11/04/16 03:26 65 18 100 Nasal Cannula 2.0 11/04/16 02:57 70 18 98 Nasal Cannula 2.0 28 11/04/16 00:00 63 11/03/16 23:56 98.5 68 20 138/70 97 Room Air 11/03/16 23:12 69 18 100 Nasal Cannula 2.0 28 11/03/16 23:00 69 18 97 Nasal Cannula 2.0 28 11/03/16 20:15 98.3 66 19 152/78 98 Nasal Cannula 2.0 11/03/16 20:00 64 11/03/16 19:13 68 18 100 Nasal Cannula 2.0 28 11/03/16 19:03 65 18 96 Nasal Cannula 2.0 28 11/03/16 19:03 95 Nasal Cannula 2.0 28 11/03/16 19:03 Nasal Cannula 2.0 11/03/16 16:00 66 11/03/16 16:00 97.7 71 18 132/64 Nasal Cannula 2.0 95 11/03/16 15:35 60 18 100 Nasal Cannula 2.0 11/03/16 15:26 67 18 96 Nasal Cannula 2.0 Intake and Output 11/03/16 11/04/16 19:00 07:00 Intake Total 55 ml 165.0 ml Output Total 1000 ml Balance 55 ml -835.0 ml IV Total 55 ml 165.0 ml Output Urine Total 1000 ml # Bowel Movements 1 Objective weak General Appearance: no acute distress, cachetic Respiratory/Chest: lungs clear Cardiovascular: normal rate Microbiology Date/Time Source Procedure Growth Status 11/01/16 13:00 Sacral Wound Gram Stain - Final Complete 11/01/16 13:00 Wound Culture - Final Proteus Mirabilis Usual Skin Liz Complete Laboratory Tests 11/04/16 07:00: White Blood Count 8.6, Red Blood Count 3.30L, Hemoglobin 9.6L, Hematocrit 30.5L , Mean Corpuscular Volume 93, Mean Corpuscular Hemoglobin 29.1, Mean Corpuscular Hemoglobin Concent 31.4L, Red Cell Distribution Width 15.2H, Platelet Count 135L, Mean Platelet Volume 6.6, Neutrophils (%) (Auto) 78.2H, Lymphocytes (%) (Auto) 9.6L, Monocytes (%) (Auto) 10.3H, Eosinophils (%) (Auto) 1.1, Basophils (%) (Auto) 0.8, Sodium Level 145, Potassium Level 3.2L, Chloride Level 104, Carbon Dioxide Level 26, Anion Gap 15, Blood Urea Nitrogen 36H, Creatinine 1.7H, Estimat Glomerular Filtration Rate , Glucose Level 78, Calcium Level 8.6 Current Medications Medications (Trade) Dose Ordered Sig/Larissa Route PRN Reason Start Time Stop Time Status Last Admin Dose Admin Acetaminophen (Tylenol) 650 mg DAILYPRN PRN ORAL wound care 11/02/16 07:45 12/02/16 07:44 Albuterol/ Ipratropium (DuoNeb 0.5-3(2.5)mg/3ml) 3 ml Q4HRT HHN 11/01/16 19:00 11/06/16 18:59 11/04/16 07:53 Amiodarone HCl 200 mg 200 mg EVERY 12 HOURS ORAL 11/01/16 09:00 12/01/16 08:59 11/04/16 08:59 Ascorbic Acid (Vitamin C) 500 mg TWICE A DAY ORAL 11/02/16 09:00 12/02/16 08:59 11/04/16 08:58 Dextrose (Dextrose 50%) STAT PRN IV Hypoglycemia 11/02/16 06:30 12/02/16 06:29 11/02/16 06:12 Docusate Sodium (Colace) 250 mg TWICE A DAY ORAL 11/02/16 09:00 12/02/16 08:59 11/04/16 08:59 Escitalopram Oxalate (Lexapro) 10 mg DAILY ORAL 11/02/16 09:00 12/02/16 08:59 11/04/16 08:59 Ferrous Sulfate (Feosol) 325 mg TWICE A DAY ORAL 11/02/16 09:00 12/02/16 08:59 11/04/16 08:58 Heparin Sodium (Porcine) (Heparin 5000 units/ml) 5,000 units EVERY 12 HOURS SUBQ 11/01/16 21:00 12/01/16 20:59 11/03/16 11:02 Insulin Aspart (NovoLOG) No Dose BEFORE MEALS AND HS SUBQ 11/01/16 21:00 12/01/16 20:59 11/04/16 12:07 Insulin Detemir (Levemir) 20 units BEDTIME SUBQ 11/01/16 21:00 12/01/16 20:59 11/03/16 21:18 Multivitamins (Multivitamins) 1 tab DAILY ORAL 11/02/16 09:00 12/02/16 08:59 11/04/16 08:59 Pantoprazole (Protonix) 40 mg EVERY 12 HOURS ORAL 11/01/16 21:00 12/01/16 20:59 11/04/16 08:59 Piperacillin Sod/ Tazobactam Sod 3.375 gm/Dextrose 110 ml @ 27.5 mls/hr Q8H IVPB 11/02/16 01:00 11/09/16 00:59 11/04/16 08:58 Polyethylene Glycol (Miralax) 17 gm DAILY ORAL 11/02/16 09:00 12/02/16 08:59 11/04/16 08:58 Pravastatin Sodium (Pravachol) 80 mg BEDTIME ORAL 11/01/16 21:00 12/01/16 20:59 11/03/16 21:16 Sucralfate (Carafate) 1 gm FOUR TIMES A DAY ORAL 11/01/16 21:00 12/01/16 20:59 11/04/16 08:59 Tramadol HCl (Ultram) 50 mg Q4H PRN ORAL Moderate Pain (Pain Scale 4-6) 11/01/16 19:45 11/08/16 19:44 Vancomycin HCl (Vanco rx to dose) 1 ea DAILY PRN MISC Per rx protocol 11/02/16 09:00 12/02/16 08:59 Vancomycin HCl/ Dextrose (Vancomycin/D5W) 275 ml @ 183.708 mls/hr Q24H IVPB 11/02/16 13:00 11/07/16 12:59 11/03/16 15:03 Zinc Sulfate (Zinc Sulfate) 220 mg DAILY ORAL 11/02/16 09:00 12/02/16 08:59 11/04/16 08:59 PRAVIN JULES Nov 04, 2016 12:25
--- NOTE | 2016-11-04 13:44 | Infectious Diseases Prog Note ---
Assessment/Plan Assessment/Plan ASSESSMENT AND PLAN: 1. sepsis, shock, e.uti/pseudomonas uti, ? proteus sacral wound infection vs colonization, likely pvc and not pna - clinically improved, off pressors - change meropenem and discontinue other abx - watch labs and chest x-ray - orders noted and entered - pulmonary treatment 2. telemetry care 3. Acute kidney injury. 4. Anemia. 5. Diabetes. 6. Hypertension. 7. Blood sugar and blood pressure controlled by primary 8. Chronic kidney disease. 9. Chronic obstructive pulmonary disease. 10. Sacral wound care per wound care protocol. 11. Cognitive impairment. 12. Poor historian. 13. 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 14. Prostatectomy. 15. History of cataract. 16. No allergy - nkda 17. Family history - non-contributory 18. Social history negative. 19. mar noted 20. Continue ICU care. 21. Treatment per primary and consultants. 22. d/w RN 23. Notes were reviewed. 24. mrsa colonization and isolation Subjective Constitutional: Denies: fever HEENT: Denies: congestion Respiratory: Denies: shortness of breath Cardiovascular: Denies: chest pain Gastrointestinal/Abdominal: Denies: diarrhea, nausea, vomiting Genitourinary: Reports: other - + ingram Neurologic: Denies: headache, numbness, weakness Psychiatric: Denies: depression Skin: Denies: rash Hematologic: Denies: bleeding Musculoskeletal: Denies: pain Allergies: Coded Allergies: No Known Allergies (Verified , 03/27/08) Objective Vital Signs Last 24 Hour Vital Signs Date Time Temp Pulse Resp B/P Pulse Ox O2 Delivery O2 Flow Rate FiO2 11/04/16 12:00 58 11/04/16 12:00 97.2 20 132/70 97 Nasal Cannula 2.0 11/04/16 11:18 Nasal Cannula 2.0 11/04/16 11:18 Nasal Cannula 2.0 11/04/16 08:00 70 11/04/16 08:00 97.2 72 16 135/72 98 Nasal Cannula 2.0 11/04/16 07:59 70 18 99 Nasal Cannula 2.0 11/04/16 07:42 97 Nasal Cannula 2.0 11/04/16 07:42 Nasal Cannula 2.0 11/04/16 07:42 73 16 97 Nasal Cannula 2.0 11/04/16 04:00 63 11/04/16 03:50 97.8 68 19 132/66 98 Nasal Cannula 2.0 11/04/16 03:26 65 18 100 Nasal Cannula 2.0 11/04/16 02:57 70 18 98 Nasal Cannula 2.0 28 11/04/16 00:00 63 11/03/16 23:56 98.5 68 20 138/70 97 Room Air 11/03/16 23:12 69 18 100 Nasal Cannula 2.0 28 11/03/16 23:00 69 18 97 Nasal Cannula 2.0 28 11/03/16 20:15 98.3 66 19 152/78 98 Nasal Cannula 2.0 11/03/16 20:00 64 11/03/16 19:13 68 18 100 Nasal Cannula 2.0 28 11/03/16 19:03 65 18 96 Nasal Cannula 2.0 28 11/03/16 19:03 95 Nasal Cannula 2.0 28 11/03/16 19:03 Nasal Cannula 2.0 11/03/16 16:00 66 11/03/16 16:00 97.7 71 18 132/64 Nasal Cannula 2.0 95 11/03/16 15:35 60 18 100 Nasal Cannula 2.0 11/03/16 15:26 67 18 96 Nasal Cannula 2.0 Height (Feet): 6 Height (Inches): 0.00 Weight (Pounds): 190 General Appearance: no acute distress HEENT: normocephalic, atraumatic, anicteric, mucous membranes moist, PERRL, EOMI, pharynx normal, supple, no JVD Respiratory/Chest: no accessory muscle use, respiratory distress, crackles/ rales, rhonchi - bilaterally Cardiovascular: normal peripheral pulses, normal rate, regular rhythm, no gallop/murmur, no JVD Abdomen: normal bowel sounds, soft, non tender, no organomegaly, other - mild distention Genitourinary: other Extremities: no cyanosis Skin: no rash Neurologic/Psychiatric: cook pie II-XII grossly normal, alert, responsive Lymphatic: no neck adenopathy Musculoskeletal: no effusion Objective Labs Test 10/31/16 03:24 10/31/16 10:20 11/01/16 04:00 11/02/16 06:40 White Blood Count 16.7 K/UL (4.8-10.8) 12.6 K/UL (4.8-10.8) 9.6 K/UL (4.8-10.8) Red Blood Count 4.15 M/UL (4.70-6.10) 3.25 M/UL (4.70-6.10) 3.61 M/UL (4.70-6.10) Hemoglobin 12.0 G/DL (14.2-18.0) 9.2 G/DL (14.2-18.0) 10.2 G/DL (14.2-18.0) Hematocrit 37.6 % (42.0-52.0) 29.8 % (42.0-52.0) 32.0 % (42.0-52.0) Mean Corpuscular Volume 91 FL (80-99) 92 FL (80-99) 89 FL (80-99) Mean Corpuscular Hemoglobin 28.9 PG (27.0-31.0) 28.3 PG (27.0-31.0) 28.3 PG (27.0-31.0) Mean Corpuscular Hemoglobin Concent 31.9 G/DL (32.0-36.0) 30.8 G/DL (32.0-36.0) 31.9 G/DL (32.0-36.0) Red Cell Distribution Width 15.2 % (11.6-14.8) 15.0 % (11.6-14.8) 15.3 % (11.6-14.8) Platelet Count 157 K/UL (150-450) 107 K/UL (150-450) 132 K/UL (150-450) Mean Platelet Volume 6.7 FL (6.5-10.1) 6.5 FL (6.5-10.1) 7.8 FL (6.5-10.1) Neutrophils (%) (Auto) 83.3 % (45.0-75.0) 77.0 % (45.0-75.0) 77.3 % (45.0-75.0) Lymphocytes (%) (Auto) 6.3 % (20.0-45.0) 12.4 % (20.0-45.0) 9.5 % (20.0-45.0) Monocytes (%) (Auto) 8.8 % (1.0-10.0) 10.1 % (1.0-10.0) 11.7 % (1.0-10.0) Eosinophils (%) (Auto) 0.0 % (0.0-3.0) 0.1 % (0.0-3.0) 0.9 % (0.0-3.0) Basophils (%) (Auto) 1.6 % (0.0-2.0) 0.5 % (0.0-2.0) 0.5 % (0.0-2.0) Urine Color Pale yellow Urine Appearance Cloudy Urine pH 8 (4.5-8.0) Urine Specific [place] 1.015 (1.005-1.035) Urine Protein 3+ (NEGATIVE) Urine Glucose (UA) Negative (NEGATIVE) Urine Ketones Negative (NEGATIVE) Urine Occult Blood 4+ (NEGATIVE) Urine Nitrite Negative (NEGATIVE) Urine Bilirubin Negative (NEGATIVE) Urine Urobilinogen Normal MG/DL (0.0-1.0) Urine Leukocyte Esterase 3+ (NEGATIVE) Urine RBC 15-20 /HPF (0 - 0) Urine WBC 5-10 /HPF (0 - 0) Urine Squamous Epithelial Cells Occasional /LPF Urine Triple Phosphate Crystals Moderate /LPF (NONE) Urine Amorphous Sediment Many /LPF (NONE) Urine Bacteria Many /HPF (NONE) Sodium Level 146 mEQ/L (135-145) 151 mEQ/L (135-145) 147 mEQ/L (135-145) Potassium Level 5.0 mEQ/L (3.4-4.9) 4.0 mEQ/L (3.4-4.9) 3.5 mEQ/L (3.4-4.9) Chloride Level 103 mEQ/L (98-107) 108 mEQ/L (98-107) 106 mEQ/L (98-107) Carbon Dioxide Level 30 mEQ/L (20-30) 25 mEQ/L (20-30) 25 mEQ/L (20-30) Anion Gap 13 (5-15) 18 (5-15) 16 (5-15) Blood Urea Nitrogen 65 mg/dL (7-23) 66 mg/dL (7-23) 52 mg/dL (7-23) Creatinine 2.6 mg/dL (0.7-1.2) 2.4 mg/dL (0.7-1.2) 1.9 mg/dL (0.7-1.2) Estimat Glomerular Filtration Rate mL/min (>60) mL/min (>60) mL/min (>60) Glucose Level 132 mg/dL (74-106) 113 mg/dL (74-106) 117 mg/dL (74-106) Lactic Acid Level 1.00 mmol/L (0.66-2.22) Calcium Level 9.4 mg/dL (8.6-10.2) 8.4 mg/dL (8.6-10.2) 8.6 mg/dL (8.6-10.2) Total Bilirubin 0.4 mg/dL (0.0-1.2) < 0.2 mg/dL (0.0-1.2) 0.2 mg/dL (0.0-1.2) Aspartate Amino Transf (AST/SGOT) 14 U/L (5-40) 15 U/L (5-40) 18 U/L (5-40) Alanine Aminotransferase (ALT/SGPT) 9 U/L (3-41) 8 U/L (3-41) 11 U/L (3-41) Alkaline Phosphatase 75 U/L (40-129) 60 U/L (40-129) 58 U/L (40-129) Total Creatine Kinase 86 U/L (38-174) Creatine Kinase MB < 1.5 ng/mL (< 6.7) Troponin I < 0.30 ng/mL (<=0.30) < 0.30 ng/mL (<=0.30) Total Protein 8.4 g/dL (6.6-8.7) 6.6 g/dL (6.6-8.7) 6.9 g/dL (6.6-8.7) Albumin 3.9 g/dL (3.5-5.2) 2.9 g/dL (3.5-5.2) 3.1 g/dL (3.5-5.2) Globulin 4.5 g/dL 3.7 g/dL 3.8 g/dL Albumin/Globulin Ratio 0.8 (1.0-2.7) 0.7 (1.0-2.7) 0.8 (1.0-2.7) Arterial Blood pH 7.340 (7.350-7.450) Arterial Blood Partial Pressure CO2 49.8 mmHg (35.0-45.0) Arterial Blood Partial Pressure O2 77.3 mmHg (75.0-100.0) Arterial Blood HCO3 26.6 mmol/L (22.0-26.0) Arterial Blood Oxygen Saturation 94.3 % (92.0-98.0) Arterial Blood Base Excess 0.4 Lucho Test Positive Phosphorus Level 4.6 mg/dL (2.5-4.8) Magnesium Level 2.4 mg/dL (1.7-2.5) 11/01 - chest x-ray: Comparison: 10/31/2016 Findings: Interim development of bilateral perihilar linear opacities consistent with atelectasis. There is increased interstitial and possibly alveolar consolidation in the left mid and lower lung. There is increased blunting of the left costophrenic angle; small effusion not excludable. Impression: Increasing bilateral perihilar atelectasis, left lung pleural and parenchymal disease, over one day, as described 11/03 - chest x-ray: IMPRESSION: Stable bilateral congestive changes Stable bilateral subsegmental atelectasis with or without scarring Labs Test 11/02/16 06:40 11/03/16 05:30 11/03/16 11:50 11/04/16 07:00 White Blood Count 9.6 K/UL (4.8-10.8) 10.2 K/UL (4.8-10.8) 8.6 K/UL (4.8-10.8) Red Blood Count 3.61 M/UL (4.70-6.10) 3.26 M/UL (4.70-6.10) 3.30 M/UL (4.70-6.10) Hemoglobin 10.2 G/DL (14.2-18.0) 9.8 G/DL (14.2-18.0) 9.6 G/DL (14.2-18.0) Hematocrit 32.0 % (42.0-52.0) 30.1 % (42.0-52.0) 30.5 % (42.0-52.0) Mean Corpuscular Volume 89 FL (80-99) 92 FL (80-99) 93 FL (80-99) Mean Corpuscular Hemoglobin 28.3 PG (27.0-31.0) 30.0 PG (27.0-31.0) 29.1 PG (27.0-31.0) Mean Corpuscular Hemoglobin Concent 31.9 G/DL (32.0-36.0) 32.5 G/DL (32.0-36.0) 31.4 G/DL (32.0-36.0) Red Cell Distribution Width 15.3 % (11.6-14.8) 15.1 % (11.6-14.8) 15.2 % (11.6-14.8) Platelet Count 132 K/UL (150-450) 125 K/UL (150-450) 135 K/UL (150-450) Mean Platelet Volume 7.8 FL (6.5-10.1) 8.0 FL (6.5-10.1) 6.6 FL (6.5-10.1) Neutrophils (%) (Auto) 77.3 % (45.0-75.0) 77.5 % (45.0-75.0) 78.2 % (45.0-75.0) Lymphocytes (%) (Auto) 9.5 % (20.0-45.0) 10.8 % (20.0-45.0) 9.6 % (20.0-45.0) Monocytes (%) (Auto) 11.7 % (1.0-10.0) 10.2 % (1.0-10.0) 10.3 % (1.0-10.0) Eosinophils (%) (Auto) 0.9 % (0.0-3.0) 0.9 % (0.0-3.0) 1.1 % (0.0-3.0) Basophils (%) (Auto) 0.5 % (0.0-2.0) 0.6 % (0.0-2.0) 0.8 % (0.0-2.0) Sodium Level 147 mEQ/L (135-145) 143 mEQ/L (135-145) 145 mEQ/L (135-145) Potassium Level 3.5 mEQ/L (3.4-4.9) 3.5 mEQ/L (3.4-4.9) 3.2 mEQ/L (3.4-4.9) Chloride Level 106 mEQ/L (98-107) 102 mEQ/L (98-107) 104 mEQ/L (98-107) Carbon Dioxide Level 25 mEQ/L (20-30) 23 mEQ/L (20-30) 26 mEQ/L (20-30) Anion Gap 16 (5-15) 18 (5-15) 15 (5-15) Blood Urea Nitrogen 52 mg/dL (7-23) 39 mg/dL (7-23) 36 mg/dL (7-23) Creatinine 1.9 mg/dL (0.7-1.2) 1.6 mg/dL (0.7-1.2) 1.7 mg/dL (0.7-1.2) Estimat Glomerular Filtration Rate mL/min (>60) mL/min (>60) mL/min (>60) Glucose Level 117 mg/dL (74-106) 99 mg/dL (74-106) 78 mg/dL (74-106) Calcium Level 8.6 mg/dL (8.6-10.2) 8.5 mg/dL (8.6-10.2) 8.6 mg/dL (8.6-10.2) Total Bilirubin 0.2 mg/dL (0.0-1.2) Aspartate Amino Transf (AST/SGOT) 18 U/L (5-40) Alanine Aminotransferase (ALT/SGPT) 11 U/L (3-41) Alkaline Phosphatase 58 U/L (40-129) Total Protein 6.9 g/dL (6.6-8.7) Albumin 3.1 g/dL (3.5-5.2) Globulin 3.8 g/dL Albumin/Globulin Ratio 0.8 (1.0-2.7) Vancomycin Level Trough 16.3 ug/mL (5.0-12.0) Microbiology Date/Time Source Procedure Growth Status 10/31/16 03:24 Blood Blood Culture - Preliminary NO GROWTH AFTER 4 DAYS Resulted 10/31/16 03:25 Nasal Nares MRSA Culture - Final Staphylococcus Aureus - Mrsa Complete 10/31/16 03:24 Urine,Clean Catch Urine Culture - Final Pseudomonas Aeruginosa Escherichia Coli - Esbl Complete 11/01/16 13:00 Sacral Wound Gram Stain - Final Complete 11/01/16 13:00 Wound Culture - Final Proteus Mirabilis Usual Skin Liz Complete Laboratory Tests Test 11/04/16 07:00 White Blood Count 8.6 K/UL (4.8-10.8) Red Blood Count 3.30 M/UL (4.70-6.10) L Hemoglobin 9.6 G/DL (14.2-18.0) L Hematocrit 30.5 % (42.0-52.0) L Mean Corpuscular Volume 93 FL (80-99) Mean Corpuscular Hemoglobin 29.1 PG (27.0-31.0) Mean Corpuscular Hemoglobin Concent 31.4 G/DL (32.0-36.0) L Red Cell Distribution Width 15.2 % (11.6-14.8) H Platelet Count 135 K/UL (150-450) L Mean Platelet Volume 6.6 FL (6.5-10.1) Neutrophils (%) (Auto) 78.2 % (45.0-75.0) H Lymphocytes (%) (Auto) 9.6 % (20.0-45.0) L Monocytes (%) (Auto) 10.3 % (1.0-10.0) H Eosinophils (%) (Auto) 1.1 % (0.0-3.0) Basophils (%) (Auto) 0.8 % (0.0-2.0) Sodium Level 145 mEQ/L (135-145) Potassium Level 3.2 mEQ/L (3.4-4.9) L Chloride Level 104 mEQ/L (98-107) Carbon Dioxide Level 26 mEQ/L (20-30) Anion Gap 15 (5-15) Blood Urea Nitrogen 36 mg/dL (7-23) H Creatinine 1.7 mg/dL (0.7-1.2) H Estimat Glomerular Filtration Rate mL/min (>60) Glucose Level 78 mg/dL (74-106) Calcium Level 8.6 mg/dL (8.6-10.2) Current Medications Medications (Trade) Dose Ordered Sig/Larissa Route PRN Reason Start Time Stop Time Status Last Admin Dose Admin Acetaminophen (Tylenol) 650 mg DAILYPRN PRN ORAL wound care 11/02/16 07:45 12/02/16 07:44 Albuterol/ Ipratropium (DuoNeb 0.5-3(2.5)mg/3ml) 3 ml Q4HRT HHN 11/01/16 19:00 11/06/16 18:59 11/04/16 07:53 Amiodarone HCl (Cordarone) 200 mg EVERY 12 HOURS ORAL 11/01/16 09:00 12/01/16 08:59 11/04/16 08:59 Ascorbic Acid (Vitamin C) 500 mg TWICE A DAY ORAL 11/02/16 09:00 12/02/16 08:59 11/04/16 08:58 Dextrose (Dextrose 50%) STAT PRN IV Hypoglycemia 11/02/16 06:30 12/02/16 06:29 11/02/16 06:12 Docusate Sodium (Colace) 250 mg TWICE A DAY ORAL 11/02/16 09:00 12/02/16 08:59 11/04/16 08:59 Escitalopram Oxalate (Lexapro) 10 mg DAILY ORAL 11/02/16 09:00 12/02/16 08:59 11/04/16 08:59 Ferrous Sulfate (Feosol) 325 mg TWICE A DAY ORAL 11/02/16 09:00 12/02/16 08:59 11/04/16 08:58 Heparin Sodium (Porcine) (Heparin 5000 units/ml) 5,000 units EVERY 12 HOURS SUBQ 11/01/16 21:00 12/01/16 20:59 11/03/16 11:02 Insulin Aspart (NovoLOG) No Dose BEFORE MEALS AND HS SUBQ 11/01/16 21:00 12/01/16 20:59 11/04/16 12:07 Insulin Detemir (Levemir) 20 units BEDTIME SUBQ 11/01/16 21:00 12/01/16 20:59 11/03/16 21:18 Meropenem/Sodium Chloride (Merrem/Sodium Chloride) 110 ml @ 220 mls/hr Q12HR IVPB 11/04/16 21:00 11/09/16 20:59 UNV Multivitamins (Multivitamins) 1 tab DAILY ORAL 11/02/16 09:00 12/02/16 08:59 11/04/16 08:59 Pantoprazole (Protonix) 40 mg EVERY 12 HOURS ORAL 11/01/16 21:00 12/01/16 20:59 11/04/16 08:59 Polyethylene Glycol (Miralax) 17 gm DAILY ORAL 11/02/16 09:00 12/02/16 08:59 11/04/16 08:58 Pravastatin Sodium (Pravachol) 80 mg BEDTIME ORAL 11/01/16 21:00 12/01/16 20:59 11/03/16 21:16 Sucralfate (Carafate) 1 gm FOUR TIMES A DAY ORAL 11/01/16 21:00 12/01/16 20:59 11/04/16 08:59 Tramadol HCl (Ultram) 50 mg Q4H PRN ORAL Moderate Pain (Pain Scale 4-6) 11/01/16 19:45 11/08/16 19:44 Zinc Sulfate 220 mg 220 mg DAILY ORAL 11/02/16 09:00 12/02/16 08:59 11/04/16 08:59 BRYNN AGUSTIN Nov 04, 2016 13:44
[2016-11-04] MEDS: Meropenem 1 GM in NS 110 ML IVPB SCH (15:06)
[2016-11-04 16:09] VITALS: BP 125/68
[2016-11-04] MEDS ORDERED: LEVEMIR FL100 UNIT/1 SUBQ (17:27)
[2016-11-04] MEDS ORDERED: INVANZ1 GM IVPB (17:27)
[2016-11-04] MEDS ORDERED: KCl 10% 40mEq/30ml liquid ORAL ONE (17:30)
[2016-11-04 20:05] VITALS: BP 140/80
[2016-11-04] MEDS: Levemir Flexpen SUBQ SCH (21:50)
[2016-11-05] VITALS: BP 124/57
--- NOTE | 2016-11-05 02:15 | Discharge Summary ---
DATE OF ADMISSION: 10/31/2016 DATE OF DISCHARGE: 11/04/2016 PERTINENT HISTORY: The patient presented with sepsis, septic shock, and respiratory failure. He had a fever of 102 in the half-way, presented with dyspnea and was placed on BiPAP in the emergency room. He also had hypotension. PERTINENT PHYSICAL FINDINGS: GENERAL: The patient on my initial exam was on a non-rebreather mask. HEENT: Head, eyes, ears, nose, and throat, sclerae are nonicteric. He has exotropia of one eye. Mucosa dry. NECK: No adenopathy. LUNGS: Distant breath sounds. HEART: Regular rhythm and tachycardic. ABDOMEN: Soft. There is mild distention and tympanitic. GENITOURINARY: Stewart is in place. SKIN: Shows a stage III decubitus. EXTREMITIES: No edema. There are contractures in the knees, in the arms. NEUROLOGIC: He is alert and responsive. He moves all extremities. COURSE IN THE HOSPITAL: The patient was placed in the intensive care unit, was given pulmonary therapy, hydration, and empiric antibiotics. Urinalysis showed 5 to 10 white cells. Chest x-ray shows infiltrate. The patient was given pulmonary care, treatment of his hypotension and septic shock and empiric antibiotics. With the above treatment, his blood pressure restored to normal, his respiratory distress improved. He did have a urine culture with Pseudomonas and E. coli ESBL and he was colonized with Methicillin-resistant Staphylococcus aureus in the nasal. He was seen by Dr. Costello in Pulmonary consultation and felt to have healthcare-acquired pneumonia. He was seen by Dr. Peters in Infectious Disease consultation. The patient improved and on the day of discharge, his vital signs were stable. His diabetes was controlled. Lungs showed bilateral wheezing, but no distress. Heart, regular rhythm. Abdomen is soft. Extremities, no edema. His laboratories have stabilized and he was discharged back to his care home facility in improved condition. FINAL DIAGNOSES: 1. Septic shock. 2. Severe sepsis. 3. Healthcare-acquired pneumonia. 4. Urinary tract infection, pyelonephritis with extended-spectrum beta-lactamase Escherichia coli and Pseudomonas. 5. Chronic kidney disease, stage 4. 6. Insulin-dependent diabetes with diabetic nephropathy. 7. Sacral decubitus, stage III, present on admission. 8. History of hypertensive heart disease. 9. History of ischemic heart disease. 10. History of gastric ulcer. 11. History of urinary retention. 12. Anemia of chronic kidney disease. 13. Congestive heart failure, acute upon chronic with diastolic dysfunction. 14. Contractures resulting from cervical spinal stenosis. 15. Osteoarthritis. DISCHARGE DISPOSITION: Back to his ECF on a pureed diet, diabetic. DISCHARGE MEDICATIONS: Per the discharge medication list. FOLLOWUP: Follow up with Dr. Lema in the facility. Jose Lema M.D. DR: VIJAY JOB#: [id number] CC:
[2016-11-05] MEDS: Meropenem 1 GM in NS 110 ML IVPB SCH (02:40)
[2016-11-05] MEDS: DuoNeb 0.5-3(2.5)mg/3ml neb HHN SCH ×3 (03:15→11:00)
[2016-11-05 04:00] VITALS: BP 119/61
[2016-11-05] MEDS: NovoLOG Insulin Flexpen SUBQ SCH ×2 (06:10→11:30)
[2016-11-05 08:00] VITALS: BP 134/64
[2016-11-05 08:27] LABS: BASOPHILS % (AUTO) 0.7 % (0.0-2.0); EOSINOPHILS % (AUTO) 2.1 % (0.0-3.0); LYMPHOCYTES % (AUTO) 12.6 % (20.0-45.0); MEAN CORPUSCULAR HEMOGLOBIN 28.8 PG (27.0-31.0); MEAN CORPUSCULAR HGB CONC 30.9 G/DL (32.0-36.0); MEAN CORPUSCULAR VOLUME 93 FL (80-99); MEAN PLATELET VOLUME 7.8 FL (6.5-10.1); MONOCYTES % (AUTO) 11.2 % (1.0-10.0); NEUTROPHILS % (AUTO) 73.4 % (45.0-75.0); PLATELET COUNT 151 K/UL (150-450); RED BLOOD COUNT 3.42 M/UL (4.70-6.10); RED CELL DISTRIBUTION WIDTH 15.1 % (11.6-14.8); WHITE BLOOD COUNT 9.6 K/UL (4.8-10.8)
[2016-11-05] MEDS: Zinc Sulfate 220mg cap ORAL SCH (08:27)
[2016-11-05] MEDS: Amiodarone 200mg tab ORAL SCH (08:27)
[2016-11-05] MEDS: Ascorbic Acid 500mg tab ORAL SCH (08:28)
[2016-11-05] MEDS: Sucralfate 1gm tab ORAL SCH (08:28)
[2016-11-05] MEDS: Docusate 250mg cap ORAL SCH (08:29)
[2016-11-05] MEDS: Miralax 17gm pkt ORAL SCH (08:29)
[2016-11-05] MEDS: Heparin 5000 units/ml inj SUBQ SCH (08:42)
[2016-11-05 08:44] LABS: ANION GAP 16 (5-15); CALCIUM 8.8 mg/dL (8.6-10.2); CARBON DIOXIDE 25 mEQ/L (20-30); CHLORIDE 104 mEQ/L (98-107); CREATININE 1.8 mg/dL (0.7-1.2); HEMOLYSIS 0; POTASSIUM 4.1 mEQ/L (3.4-4.9); SODIUM 145 mEQ/L (135-145)
--- NOTE | 2016-11-05 10:25 | Pulmonology Progress Note ---
Assessment/Plan Assessment/Plan 1. Septic shock. 2. Urinary tract infection. 3. Chronic obstructive pulmonary disease. 4. Pneumonia, healthcare associated. 5. Dementia Weak but alert cont abx CXR stable bilateral congestive changes, atelectasis pulm stable DC planning Subjective Constitutional: Reports: no symptoms HEENT: Repors: no symptoms Respiratory: Reports: no symptoms Cardiovascular: Reports: no symptoms Gastrointestinal/Abdominal: Reports: no symptoms Neurologic: Reports: no symptoms Allergies: Coded Allergies: No Known Allergies (Verified , 03/27/08) Subjective Awake no distress tolerated some po not getting oob remains on o2 no fever noted denies cp nv or bleeding Objective Last 24 Hour Vital Signs Date Time Temp Pulse Resp B/P Pulse Ox O2 Delivery O2 Flow Rate FiO2 11/05/16 08:00 60 11/05/16 08:00 96.9 63 17 134/64 98 Nasal Cannula 2.0 11/05/16 07:58 78 20 100 Nasal Cannula 2.0 11/05/16 07:48 77 20 98 Nasal Cannula 2.0 11/05/16 07:46 Nasal Cannula 2.0 11/05/16 07:45 98 Nasal Cannula 2.0 11/05/16 04:00 97.5 62 18 119/61 97 Nasal Cannula 2.0 11/05/16 04:00 61 11/05/16 03:20 68 18 99 Nasal Cannula 2.0 28 11/05/16 03:16 7 18 97 Nasal Cannula 2.0 28 11/05/16 00:00 97.3 66 20 124/57 95 Nasal Cannula 2.0 11/05/16 00:00 63 11/04/16 23:30 70 18 99 Nasal Cannula 2.0 28 11/04/16 23:20 68 18 97 Nasal Cannula 2.0 28 11/04/16 20:05 98.5 71 20 140/80 96 Nasal Cannula 2.0 11/04/16 20:00 70 11/04/16 19:30 72 18 99 Nasal Cannula 2.0 28 11/04/16 19:26 Nasal Cannula 2.0 28 11/04/16 19:26 97 Nasal Cannula 2.0 28 11/04/16 19:24 71 18 97 Nasal Cannula 2.0 28 11/04/16 16:09 98.2 60 21 125/68 96 Nasal Cannula 2.0 11/04/16 16:00 65 11/04/16 15:34 63 18 99 Nasal Cannula 2.0 11/04/16 15:26 61 16 97 Nasal Cannula 2.0 11/04/16 12:00 58 11/04/16 12:00 97.2 20 132/70 97 Nasal Cannula 2.0 11/04/16 11:18 Nasal Cannula 2.0 11/04/16 11:18 Nasal Cannula 2.0 Intake and Output 11/04/16 11/05/16 19:00 07:00 Intake Total 340.0 ml 230 ml Output Total 400 ml 350 ml Balance -60.0 ml -120 ml Intake Oral 120 ml 120 ml IV Total 220.0 ml 110 ml Output Urine Total 400 ml 350 ml # Bowel Movements 2 2 General Appearance: WD/WN HEENT: atraumatic, anicteric Respiratory/Chest: no respiratory distress, rhonchi Cardiovascular: regular rhythm, regularly irregular Abdomen: normal bowel sounds, soft, non tender, no organomegaly Extremities: no cyanosis Skin: no rash Neurologic/Psychiatric: abnormal gait, alert Laboratory Tests 11/05/16 07:35: White Blood Count 9.6, Red Blood Count 3.42L, Hemoglobin 9.8L, Hematocrit 31.9L , Mean Corpuscular Volume 93, Mean Corpuscular Hemoglobin 28.8, Mean Corpuscular Hemoglobin Concent 30.9L, Red Cell Distribution Width 15.1H, Platelet Count 151, Mean Platelet Volume 7.8, Neutrophils (%) (Auto) 73.4, Lymphocytes (%) (Auto) 12.6L, Monocytes (%) (Auto) 11.2H, Eosinophils (%) (Auto ) 2.1, Basophils (%) (Auto) 0.7, Sodium Level 145, Potassium Level 4.1, Chloride Level 104, Carbon Dioxide Level 25, Anion Gap 16H, Blood Urea Nitrogen 33H, Creatinine 1.8H, Estimat Glomerular Filtration Rate , Glucose Level 74, Calcium Level 8.8 Current Medications Medications (Trade) Dose Ordered Sig/Larissa Route PRN Reason Start Time Stop Time Status Last Admin Dose Admin Acetaminophen (Tylenol) 650 mg DAILYPRN PRN ORAL wound care 11/02/16 07:45 12/02/16 07:44 Albuterol/ Ipratropium (DuoNeb 0.5-3(2.5)mg/3ml) 3 ml Q4HRT N 11/01/16 19:00 11/06/16 18:59 11/05/16 07:59 Amiodarone HCl (Cordarone) 200 mg EVERY 12 HOURS ORAL 11/01/16 09:00 12/01/16 08:59 11/05/16 08:27 Ascorbic Acid (Vitamin C) 500 mg TWICE A DAY ORAL 11/02/16 09:00 12/02/16 08:59 11/05/16 08:28 Dextrose (Dextrose 50%) STAT PRN IV Hypoglycemia 11/02/16 06:30 12/02/16 06:29 11/02/16 06:12 Docusate Sodium (Colace) 250 mg TWICE A DAY ORAL 11/02/16 09:00 12/02/16 08:59 11/04/16 17:18 Escitalopram Oxalate (Lexapro) 10 mg DAILY ORAL 11/02/16 09:00 12/02/16 08:59 11/05/16 08:27 Ferrous Sulfate (Feosol) 325 mg TWICE A DAY ORAL 11/02/16 09:00 12/02/16 08:59 11/05/16 08:28 Heparin Sodium (Porcine) (Heparin 5000 units/ml) 5,000 units EVERY 12 HOURS SUBQ 11/01/16 21:00 12/01/16 20:59 11/05/16 08:42 Insulin Aspart (NovoLOG) No Dose BEFORE MEALS AND HS SUBQ 11/01/16 21:00 12/01/16 20:59 11/04/16 21:51 Insulin Detemir (Levemir) 20 units BEDTIME SUBQ 11/01/16 21:00 12/01/16 20:59 11/04/16 21:50 Meropenem/Sodium Chloride (Merrem/Sodium Chloride) 110 ml @ 220 mls/hr Q12HR@0300,1500 IVPB 11/04/16 15:00 11/09/16 14:59 11/05/16 02:40 Multivitamins (Multivitamins) 1 tab DAILY ORAL 11/02/16 09:00 12/02/16 08:59 11/05/16 08:28 Pantoprazole (Protonix) 40 mg EVERY 12 HOURS ORAL 11/01/16 21:00 12/01/16 20:59 11/05/16 08:28 Polyethylene Glycol (Miralax) 17 gm DAILY ORAL 11/02/16 09:00 12/02/16 08:59 11/04/16 08:58 Pravastatin Sodium (Pravachol) 80 mg BEDTIME ORAL 11/01/16 21:00 12/01/16 20:59 11/04/16 21:46 Sucralfate (Carafate) 1 gm FOUR TIMES A DAY ORAL 11/01/16 21:00 12/01/16 20:59 11/05/16 08:28 Tramadol HCl (Ultram) 50 mg Q4H PRN ORAL Moderate Pain (Pain Scale 4-6) 11/01/16 19:45 11/08/16 19:44 11/05/16 08:51 Zinc Sulfate 220 mg 220 mg DAILY ORAL 11/02/16 09:00 12/02/16 08:59 11/05/16 08:27 ZACHARIAH JIMÉNEZ DO Nov 05, 2016 10:25
--- NOTE | 2016-11-05 11:35 | Infectious Diseases Prog Note ---
Assessment/Plan Assessment/Plan ASSESSMENT AND PLAN: 1. sepsis, shock, e.uti/pseudomonas uti, ? proteus sacral wound infection vs colonization, likely pvc and not pna - clinically improving, off pressors - meropenem - watch labs and chest x-ray - orders noted and entered - pulmonary treatment 2. telemetry care 3. Acute kidney injury. 4. Anemia. 5. Diabetes. 6. Hypertension. 7. Blood sugar and blood pressure controlled by primary 8. Chronic kidney disease. 9. Chronic obstructive pulmonary disease. 10. Sacral wound care per wound care protocol. 11. Cognitive impairment. 12. Poor historian. 13. 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 14. Prostatectomy. 15. History of cataract. 16. No allergy - nkda 17. Family history - non-contributory 18. Social history negative. 19. mar noted 20. Continue ICU care. 21. Treatment per primary and consultants. 22. d/w RN 23. Notes were reviewed. 24. mrsa colonization and isolation Subjective Constitutional: Denies: fever HEENT: Denies: congestion Respiratory: Denies: shortness of breath Cardiovascular: Denies: chest pain Gastrointestinal/Abdominal: Denies: nausea, vomiting Genitourinary: Reports: other - + ingram Neurologic: Denies: confusion Psychiatric: Denies: depression Skin: Denies: rash Hematologic: Denies: bleeding Musculoskeletal: Denies: pain Allergies: Coded Allergies: No Known Allergies (Verified , 03/27/08) Objective Vital Signs Last 24 Hour Vital Signs Date Time Temp Pulse Resp B/P Pulse Ox O2 Delivery O2 Flow Rate FiO2 11/05/16 08:00 60 11/05/16 08:00 96.9 63 17 134/64 98 Nasal Cannula 2.0 11/05/16 07:58 78 20 100 Nasal Cannula 2.0 11/05/16 07:48 77 20 98 Nasal Cannula 2.0 11/05/16 07:46 Nasal Cannula 2.0 11/05/16 07:45 98 Nasal Cannula 2.0 11/05/16 04:00 97.5 62 18 119/61 97 Nasal Cannula 2.0 11/05/16 04:00 61 11/05/16 03:20 68 18 99 Nasal Cannula 2.0 28 11/05/16 03:16 7 18 97 Nasal Cannula 2.0 11/05/16 00:00 97.3 66 20 124/57 95 Nasal Cannula 2.0 11/05/16 00:00 63 11/04/16 23:30 70 18 99 Nasal Cannula 2.0 28 11/04/16 23:20 68 18 97 Nasal Cannula 2.0 28 11/04/16 20:05 98.5 71 20 140/80 96 Nasal Cannula 2.0 11/04/16 20:00 70 11/04/16 19:30 72 18 99 Nasal Cannula 2.0 28 11/04/16 19:26 Nasal Cannula 2.0 28 11/04/16 19:26 97 Nasal Cannula 2.0 28 11/04/16 19:24 71 18 97 Nasal Cannula 2.0 28 11/04/16 16:09 98.2 60 21 125/68 96 Nasal Cannula 2.0 11/04/16 16:00 65 11/04/16 15:34 63 18 99 Nasal Cannula 2.0 11/04/16 15:26 61 16 97 Nasal Cannula 2.0 11/04/16 12:00 58 11/04/16 12:00 97.2 20 132/70 97 Nasal Cannula 2.0 Height (Feet): 6 Height (Inches): 0.00 Weight (Pounds): 190 General Appearance: no acute distress HEENT: normocephalic, atraumatic, anicteric, mucous membranes moist, PERRL, EOMI, pharynx normal, supple, no JVD Respiratory/Chest: lungs clear, normal breath sounds, no respiratory distress, no accessory muscle use Cardiovascular: normal rate, regular rhythm, no gallop/murmur, no JVD Abdomen: normal bowel sounds, soft, non tender, no organomegaly, non distended Genitourinary: other - + ingram Extremities: no cyanosis Skin: no rash Neurologic/Psychiatric: clinical lab specialist II-XII grossly normal, alert, oriented x 3 Lymphatic: no neck adenopathy Musculoskeletal: no effusion Objective Labs Test 10/31/16 03:24 10/31/16 10:20 11/01/16 04:00 11/02/16 06:40 White Blood Count 16.7 K/UL (4.8-10.8) 12.6 K/UL (4.8-10.8) 9.6 K/UL (4.8-10.8) Red Blood Count 4.15 M/UL (4.70-6.10) 3.25 M/UL (4.70-6.10) 3.61 M/UL (4.70-6.10) Hemoglobin 12.0 G/DL (14.2-18.0) 9.2 G/DL (14.2-18.0) 10.2 G/DL (14.2-18.0) Hematocrit 37.6 % (42.0-52.0) 29.8 % (42.0-52.0) 32.0 % (42.0-52.0) Mean Corpuscular Volume 91 FL (80-99) 92 FL (80-99) 89 FL (80-99) Mean Corpuscular Hemoglobin 28.9 PG (27.0-31.0) 28.3 PG (27.0-31.0) 28.3 PG (27.0-31.0) Mean Corpuscular Hemoglobin Concent 31.9 G/DL (32.0-36.0) 30.8 G/DL (32.0-36.0) 31.9 G/DL (32.0-36.0) Red Cell Distribution Width 15.2 % (11.6-14.8) 15.0 % (11.6-14.8) 15.3 % (11.6-14.8) Platelet Count 157 K/UL (150-450) 107 K/UL (150-450) 132 K/UL (150-450) Mean Platelet Volume 6.7 FL (6.5-10.1) 6.5 FL (6.5-10.1) 7.8 FL (6.5-10.1) Neutrophils (%) (Auto) 83.3 % (45.0-75.0) 77.0 % (45.0-75.0) 77.3 % (45.0-75.0) Lymphocytes (%) (Auto) 6.3 % (20.0-45.0) 12.4 % (20.0-45.0) 9.5 % (20.0-45.0) Monocytes (%) (Auto) 8.8 % (1.0-10.0) 10.1 % (1.0-10.0) 11.7 % (1.0-10.0) Eosinophils (%) (Auto) 0.0 % (0.0-3.0) 0.1 % (0.0-3.0) 0.9 % (0.0-3.0) Basophils (%) (Auto) 1.6 % (0.0-2.0) 0.5 % (0.0-2.0) 0.5 % (0.0-2.0) Urine Color Pale yellow Urine Appearance Cloudy Urine pH 8 (4.5-8.0) Urine Specific [place] 1.015 (1.005-1.035) Urine Protein 3+ (NEGATIVE) Urine Glucose (UA) Negative (NEGATIVE) Urine Ketones Negative (NEGATIVE) Urine Occult Blood 4+ (NEGATIVE) Urine Nitrite Negative (NEGATIVE) Urine Bilirubin Negative (NEGATIVE) Urine Urobilinogen Normal MG/DL (0.0-1.0) Urine Leukocyte Esterase 3+ (NEGATIVE) Urine RBC 15-20 /HPF (0 - 0) Urine WBC 5-10 /HPF (0 - 0) Urine Squamous Epithelial Cells Occasional /LPF Urine Triple Phosphate Crystals Moderate /LPF (NONE) Urine Amorphous Sediment Many /LPF (NONE) Urine Bacteria Many /HPF (NONE) Sodium Level 146 mEQ/L (135-145) 151 mEQ/L (135-145) 147 mEQ/L (135-145) Potassium Level 5.0 mEQ/L (3.4-4.9) 4.0 mEQ/L (3.4-4.9) 3.5 mEQ/L (3.4-4.9) Chloride Level 103 mEQ/L (98-107) 108 mEQ/L (98-107) 106 mEQ/L (98-107) Carbon Dioxide Level 30 mEQ/L (20-30) 25 mEQ/L (20-30) 25 mEQ/L (20-30) Anion Gap 13 (5-15) 18 (5-15) 16 (5-15) Blood Urea Nitrogen 65 mg/dL (7-23) 66 mg/dL (7-23) 52 mg/dL (7-23) Creatinine 2.6 mg/dL (0.7-1.2) 2.4 mg/dL (0.7-1.2) 1.9 mg/dL (0.7-1.2) Estimat Glomerular Filtration Rate mL/min (>60) mL/min (>60) mL/min (>60) Glucose Level 132 mg/dL (74-106) 113 mg/dL (74-106) 117 mg/dL (74-106) Lactic Acid Level 1.00 mmol/L (0.66-2.22) Calcium Level 9.4 mg/dL (8.6-10.2) 8.4 mg/dL (8.6-10.2) 8.6 mg/dL (8.6-10.2) Total Bilirubin 0.4 mg/dL (0.0-1.2) < 0.2 mg/dL (0.0-1.2) 0.2 mg/dL (0.0-1.2) Aspartate Amino Transf (AST/SGOT) 14 U/L (5-40) 15 U/L (5-40) 18 U/L (5-40) Alanine Aminotransferase (ALT/SGPT) 9 U/L (3-41) 8 U/L (3-41) 11 U/L (3-41) Alkaline Phosphatase 75 U/L (40-129) 60 U/L (40-129) 58 U/L (40-129) Total Creatine Kinase 86 U/L (38-174) Creatine Kinase MB < 1.5 ng/mL (< 6.7) Troponin I < 0.30 ng/mL (<=0.30) < 0.30 ng/mL (<=0.30) Total Protein 8.4 g/dL (6.6-8.7) 6.6 g/dL (6.6-8.7) 6.9 g/dL (6.6-8.7) Albumin 3.9 g/dL (3.5-5.2) 2.9 g/dL (3.5-5.2) 3.1 g/dL (3.5-5.2) Globulin 4.5 g/dL 3.7 g/dL 3.8 g/dL Albumin/Globulin Ratio 0.8 (1.0-2.7) 0.7 (1.0-2.7) 0.8 (1.0-2.7) Arterial Blood pH 7.340 (7.350-7.450) Arterial Blood Partial Pressure CO2 49.8 mmHg (35.0-45.0) Arterial Blood Partial Pressure O2 77.3 mmHg (75.0-100.0) Arterial Blood HCO3 26.6 mmol/L (22.0-26.0) Arterial Blood Oxygen Saturation 94.3 % (92.0-98.0) Arterial Blood Base Excess 0.4 Lucho Test Positive Phosphorus Level 4.6 mg/dL (2.5-4.8) Magnesium Level 2.4 mg/dL (1.7-2.5) 11/01 - chest x-ray: Comparison: 10/31/2016 Findings: Interim development of bilateral perihilar linear opacities consistent with atelectasis. There is increased interstitial and possibly alveolar consolidation in the left mid and lower lung. There is increased blunting of the left costophrenic angle; small effusion not excludable. Impression: Increasing bilateral perihilar atelectasis, left lung pleural and parenchymal disease, over one day, as described 11/03 - chest x-ray: IMPRESSION: Stable bilateral congestive changes Stable bilateral subsegmental atelectasis with or without scarring Microbiology Date/Time Source Procedure Growth Status 10/31/16 03:24 Blood Blood Culture - Final NO GROWTH AFTER 5 DAYS Complete 10/31/16 03:25 Nasal Nares MRSA Culture - Final Staphylococcus Aureus - Mrsa Complete 10/31/16 03:24 Urine,Clean Catch Urine Culture - Final Pseudomonas Aeruginosa Escherichia Coli - Esbl Complete 11/01/16 13:00 Sacral Wound Gram Stain - Final Complete 11/01/16 13:00 Wound Culture - Final Proteus Mirabilis Usual Skin Liz Complete Laboratory Tests Test 11/05/16 07:35 White Blood Count 9.6 K/UL (4.8-10.8) Red Blood Count 3.42 M/UL (4.70-6.10) L Hemoglobin 9.8 G/DL (14.2-18.0) L Hematocrit 31.9 % (42.0-52.0) L Mean Corpuscular Volume 93 FL (80-99) Mean Corpuscular Hemoglobin 28.8 PG (27.0-31.0) Mean Corpuscular Hemoglobin Concent 30.9 G/DL (32.0-36.0) L Red Cell Distribution Width 15.1 % (11.6-14.8) H Platelet Count 151 K/UL (150-450) Mean Platelet Volume 7.8 FL (6.5-10.1) Neutrophils (%) (Auto) 73.4 % (45.0-75.0) Lymphocytes (%) (Auto) 12.6 % (20.0-45.0) L Monocytes (%) (Auto) 11.2 % (1.0-10.0) H Eosinophils (%) (Auto) 2.1 % (0.0-3.0) Basophils (%) (Auto) 0.7 % (0.0-2.0) Sodium Level 145 mEQ/L (135-145) Potassium Level 4.1 mEQ/L (3.4-4.9) Chloride Level 104 mEQ/L (98-107) Carbon Dioxide Level 25 mEQ/L (20-30) Anion Gap 16 (5-15) H Blood Urea Nitrogen 33 mg/dL (7-23) H Creatinine 1.8 mg/dL (0.7-1.2) H Estimat Glomerular Filtration Rate mL/min (>60) Glucose Level 74 mg/dL (74-106) Calcium Level 8.8 mg/dL (8.6-10.2) Current Medications Medications (Trade) Dose Ordered Sig/Larissa Route PRN Reason Start Time Stop Time Status Last Admin Dose Admin Acetaminophen (Tylenol) 650 mg DAILYPRN PRN ORAL wound care 11/02/16 07:45 12/02/16 07:44 Albuterol/ Ipratropium (DuoNeb 0.5-3(2.5)mg/3ml) 3 ml Q4HRT HHN 11/01/16 19:00 11/06/16 18:59 11/05/16 07:59 Amiodarone HCl (Cordarone) 200 mg EVERY 12 HOURS ORAL 11/01/16 09:00 12/01/16 08:59 11/05/16 08:27 Ascorbic Acid (Vitamin C) 500 mg TWICE A DAY ORAL 11/02/16 09:00 12/02/16 08:59 11/05/16 08:28 Dextrose (Dextrose 50%) STAT PRN IV Hypoglycemia 11/02/16 06:30 12/02/16 06:29 11/02/16 06:12 Docusate Sodium (Colace) 250 mg TWICE A DAY ORAL 11/02/16 09:00 12/02/16 08:59 11/04/16 17:18 Escitalopram Oxalate (Lexapro) 10 mg DAILY ORAL 11/02/16 09:00 12/02/16 08:59 11/05/16 08:27 Ferrous Sulfate (Feosol) 325 mg TWICE A DAY ORAL 11/02/16 09:00 12/02/16 08:59 11/05/16 08:28 Heparin Sodium (Porcine) (Heparin 5000 units/ml) 5,000 units EVERY 12 HOURS SUBQ 11/01/16 21:00 12/01/16 20:59 11/05/16 08:42 Insulin Aspart (NovoLOG) No Dose BEFORE MEALS AND HS SUBQ 11/01/16 21:00 12/01/16 20:59 11/04/16 21:51 Insulin Detemir (Levemir) 20 units BEDTIME SUBQ 11/01/16 21:00 12/01/16 20:59 11/04/16 21:50 Meropenem/Sodium Chloride (Merrem/Sodium Chloride) 110 ml @ 220 mls/hr Q12HR@0300,1500 IVPB 11/04/16 15:00 11/09/16 14:59 11/05/16 02:40 Multivitamins (Multivitamins) 1 tab DAILY ORAL 11/02/16 09:00 12/02/16 08:59 11/05/16 08:28 Pantoprazole (Protonix) 40 mg EVERY 12 HOURS ORAL 11/01/16 21:00 12/01/16 20:59 11/05/16 08:28 Polyethylene Glycol (Miralax) 17 gm DAILY ORAL 11/02/16 09:00 12/02/16 08:59 11/04/16 08:58 Pravastatin Sodium (Pravachol) 80 mg BEDTIME ORAL 11/01/16 21:00 12/01/16 20:59 11/04/16 21:46 Sucralfate (Carafate) 1 gm FOUR TIMES A DAY ORAL 11/01/16 21:00 12/01/16 20:59 11/05/16 08:28 Tramadol HCl (Ultram) 50 mg Q4H PRN ORAL Moderate Pain (Pain Scale 4-6) 11/01/16 19:45 11/08/16 19:44 11/05/16 08:51 Zinc Sulfate 220 mg 220 mg DAILY ORAL 11/02/16 09:00 12/02/16 08:59 11/05/16 08:27 BRYNN AGUSTIN Nov 05, 2016 11:35
--- NOTE | 2016-11-05 12:28 | Diagnostic Imaging Report ---
Indications: Abdominal pain Technique: Portal supine AP abdomen Findings: Comparison: 09/07/2014 Mild diffuse gaseous distention of colon. No significant small bowel dilation. Scattered vascular calcifications. Mild degenerative changes lower lumbar spine. IMPRESSION: Nonspecific bowel gas pattern, nonobstructive, may represent diffuse colonic ileus Degenerative spondylosis Arteriosclerosis
[2016-11-05] MEDS ORDERED: NS 275ml ONE (13:05)
[2016-11-05] MEDS ORDERED: Tubing IV Secondary IV ONE (13:05)
== END 2016-11-05 13:06 | DRG 871 ==
LOC: EDBD 03:19 → EMR 03:58 → ICU 04:00 → EDBEDREQSVC 05:17 → EDBEDREQ 05:18 → EDBEDREQSVC 06:22 → EDBEDREQ 08:35 → 2E 11-01 17:55
DX: A41.9 Sepsis, unspecified organism (principal); R65.21 Severe sepsis with septic shock; I50.33 Acute on chronic diastolic (congestive) heart failure; J18.9 Pneumonia, unspecified organism; N18.4 Chronic kidney disease, stage 4 (severe); N17.9 Acute kidney failure, unspecified; I13.0 Hypertensive heart and chronic kidney disease with heart failure and stage 1 through stage 4 chronic kidney disease, or unspecified chronic kidney disease; F03.90 Unspecified dementia, unspecified severity, without behavioral disturbance, psychotic disturbance, mood disturbance, and anxiety; L89.153 Pressure ulcer of sacral region, stage 3; N12 Tubulo-interstitial nephritis, not specified as acute or chronic; M48.02 Spinal stenosis, cervical region; E11.22 Type 2 diabetes mellitus with diabetic chronic kidney disease; Z66 Do not resuscitate; B96.20 Unspecified Escherichia coli [E. coli] as the cause of diseases classified elsewhere; B96.5 Pseudomonas (aeruginosa) (mallei) (pseudomallei) as the cause of diseases classified elsewhere; Z16.12 Extended spectrum beta lactamase (ESBL) resistance; Z79.4 Long term (current) use of insulin; I25.9 Chronic ischemic heart disease, unspecified; R33.9 Retention of urine, unspecified; M24.50 Contracture, unspecified joint; M19.90 Unspecified osteoarthritis, unspecified site; Z87.891 Personal history of nicotine dependence; I25.10 Atherosclerotic heart disease of native coronary artery without angina pectoris; Z22.322 Carrier or suspected carrier of Methicillin resistant Staphylococcus aureus
CPT/HCPCS: 36415; 36600; 71010; 74000; 80048; 80053; 80202; 81003; 82550; 82553; 82803; 82962; 83605; 83735; 84100; 84484; 85025; 87040; 87070; 87081; 87086; 87181; 87205; 93005; 94640; 94660; 94664; 94760; J0171; J1580; J1815; J7620; S5561